=== PATIENT | male | born 1950 | race Caucasian/White ===

== ENCOUNTER 2022-07-15 08:57 | Inpatient (IN) | payer MEDICARE ==
[2022-07-15] VITALS (8 sets, daily range): BP systolic 80–113; BP diastolic 46–69
[~2022-07-15] VITALS: Ht 172.7 cm; Wt 76.5 kg
[2022-07-15] MEDS ORDERED: ALBUMIN HUMAN 25%-12.5GM/50ML IV BOTTLE IV ONE (09:00)
[2022-07-15] MEDS ORDERED: HEPARIN SODIUM,PORCINE 1,000 UNITS/ML VIAL IVP ONE (09:00)
[2022-07-15] MEDS ORDERED: SODIUM CHLORIDE 0.9% 1,000 ML IV ONE (09:15)
[2022-07-15 09:26] LABS: BASOPHILS % (AUTO) 0.2 % (0.0-2.0); EOSINOPHILS % (AUTO) 0 % (1.0-6.0); HEMATOCRIT 33.1 % (41-53); HEMOGLOBIN 10.7 g/dL (13.5-17.5); LYMPHOCYTES # (AUTO) 0.4 K/uL (1.0-4.8); LYMPHOCYTES % (AUTO) 1.4 % (22.0-44.0); MEAN CORPUSCULAR HEMOGLOBIN 32.3 pg (26.0-34.0); MEAN CORPUSCULAR HGB CONC 32.4 G/dL (31.0-37.0); MEAN CORPUSCULAR VOLUME 100 fL (80-100); MONOCYTES # (AUTO) 1.1 K/uL (0.1-1.0); MONOCYTES % (AUTO) 3.7 % (2.0-9.0); NEUTROPHILS # (AUTO) 27.1 K/uL (1.8-7.7); PLATELET COUNT (AUTO) 517 K/uL (150-450); RED BLOOD CELL COUNT(AUTO) 3.32 MIL/uL (4.50-5.90); RED CELL DISTRIBUTION WIDTH 16.6 % (11.5-14.5)
[2022-07-15 09:28] LABS: NEUTROPHILS % (AUTO) 94.7 % (40.0-70.0)
[2022-07-15 09:38] LABS: INR 1.1 (0.9-1.1); PROTHROMBIN TIME 11.5 SEC (9.4-11.6)
[2022-07-15] MEDS ORDERED: ONDANSETRON HCL 4 MG/2 ML VIAL IVP ONE (09:45)
[2022-07-15] MEDS ORDERED: CefTRIAXone 1 GM/DEXTROSE 50 ML IV ONE (09:45)
[2022-07-15] MEDS ORDERED: SODIUM CHLORIDE 0.9% 2,000 ML IV ONE (09:45)
[2022-07-15] MEDS ORDERED: MORPHINE SULFATE 4 MG/ML SYRINGE IVP ONE (09:45)
[2022-07-15 09:47] LABS: B-TYPE NATRIURETIC PEPTIDE 72 pg/mL (0-100)
[2022-07-15 09:58] LABS: AMMONIA 46 umol/L (11-32)
[2022-07-15 10:06] LABS: LACTIC ACID 2.8 mmol/L (0.4-2.0)
[2022-07-15 10:46] LABS: COVID AG,FIA SOURCE NASOPHARYNGEAL
[2022-07-15 10:52] LABS: ABG BASE EXCESS -16.6 mmol/L (-2.0-3.0); ABG CARBOXYHEMOGLOBIN 0.3 % (0.0-1.5); ABG HCO3 12.7 mmol/L (22.0-26.0); ABG METHEMOGLOBIN 0.1 % (0.0-1.5); ABG OXYGEN CONTENT 12.8 mL/dL (15.0-23.0); ABG OXYHEMOGLOBIN 97.6 % (94.0-100.0); ABG PH 7.326 (7.35-7.450); ABG TOTAL HEMOGLOBIN 9.2 G/dL (12.0-18.0); PO2, ARTERIAL BG 96.7 mmHg (75.0-83.0); SOURCE, BLOOD GAS ARTERIAL; TEMPERATURE, FAHRENHEIT, BG 92.6 FAHREN (96.0-98.6)
[2022-07-15 10:53] LABS: ABG A-A DIFF O2 31.9 mmHg (10-20.0); ABG PCO2 19 mmHg (35-45); SITE, BLOOD GAS LFT RADIAL
[2022-07-15 11:03] LABS: APPEARANCE,URINE TURBID (CLEAR); BILIRUBIN,URINE NEGATIVE (NEGATIVE); GLUCOSE, URINE (UA) NEGATIVE (NEGATIVE); KETONES,URINE NEGATIVE (NEGATIVE); LEUKOCYTE ESTERASE ,URINE LARGE (NEGATIVE); NITRATE,URINE NEGATIVE (NEGATIVE); OCCULT BLOOD,URINE LARGE (NEGATIVE); PH,URINE 8.5 (5.0-8.0); PROTEIN,URINE 300-600,SEE CONFIRM mg/dL (NEGATIVE); SPECIFIC GRAVITIY, URINE 1.009 (1.003-1.030); UROBILINOGEN,URINE <=1.0 mg/dL (<=1.0)
[2022-07-15 11:19] LABS: RBC,URINE 26-50 /HPF (0-2); SULFOSALICYLIC ACID,URINE 3+ (Negative); WBC,URINE 51-100 /HPF (0-5)
[2022-07-15 11:20] LABS: BACTERIA,URINE Many /HPF (None Seen)
[2022-07-15 11:56] LABS: INFLUENZA TYPE A NEGATIVE FOR TYPE A (NEGATIVE); INFLUENZA TYPE B NEGATIVE FOR TYPE B (NEGATIVE)
[2022-07-15 12:19] LABS: ALBUMIN 1.4 g/dL (3.4-5.0); BILIRUBIN,TOTAL 2.7 mg/dL (0.1-1.0); CALCIUM, TOTAL 7.5 mg/dL (8.8-10.5); CREATININE 4.03 mg/dL (0.60-1.30); TOTAL PROTEIN, SERUM 5.3 g/dL (6.4-8.2)
[2022-07-15 12:27] LABS: POTASSIUM 7.1 mmol/L (3.5-5.1)
[2022-07-15 12:27] LABS: OCCULT BLOOD STOOL SINGLE ONLY NEGATIVE (NEGATIVE)
[2022-07-15] MEDS ORDERED: SODIUM BICARBONATE [ADULT] 8.4% 50 MEQ/50 ML SYRINGE IVP ONE ×2 (12:30→14:00)
[2022-07-15] MEDS ORDERED: DEXTROSE 50%-WATER 25 GM/50 ML SYRINGE IVP ONE (12:30)
[2022-07-15] MEDS ORDERED: INSULIN REGULAR, HUMAN 100 UNITS/ML IVP ONE (12:30)
[2022-07-15] MEDS ORDERED: CALCIUM GLUCONATE 100 MG/ML 10 ML IVP ONE (12:30)
[2022-07-15] MEDS ORDERED: HEPARIN SODIUM,PORCINE 5,000 UNITS/ML VIAL ONE (13:11)
[2022-07-15 13:14] LABS: CREATINE KINASE, TOTAL ONLY 1115 U/L (39-308); LIPASE 319 U/L (73-393)
[2022-07-15] MEDS ORDERED: SODIUM ZIRCONIUM CYCLOSILICATE 5 GM POWDER PACKET PO ONE (14:00)
[2022-07-15] MEDS ORDERED: ALBUMIN HUMAN 25%-12.5GM/50ML 50 ML IV ONE (14:00)
[2022-07-15] MEDS ORDERED: LEVOFLOXACIN 750 MG/D5% WATER 150 ML IV ONE ×2 (15:00→17:00)
[2022-07-15] MEDS: PHENYLEPHRINE 200 MG/D5%-WATER 250 ML IV PRN (15:09)
[2022-07-15] MEDS ORDERED: ZOLPIDEM TARTRATE 5 MG TABLET PO PRN (16:00)
[2022-07-15] MEDS ORDERED: MORPHINE SULFATE 2 MG/ML SYRINGE IVP PRN (16:00)
[2022-07-15] MEDS ORDERED: *CLINICAL-LEVOFLOXACIN IVPB DOSING CLINICAL ONE (16:00)
[2022-07-15] MEDS ORDERED: MAGNESIUM HYDROXIDE SUSPENSION 30 ML UDCUP PO PRN (16:00)
[2022-07-15] MEDS ORDERED: BISACODYL 10 MG RECTAL RECTAL SUPPOSITORY PR PRN (16:00)
[2022-07-15] MEDS ORDERED: VASOPRESSIN 40 UNITS in DEXTROSE 5%-WATER 98 ML IV PRN (16:45)
[2022-07-15] MEDS: HEPARIN SODIUM,PORCINE 5,000 UNITS/ML VIAL SQ SCH (17:10)
[2022-07-15] MEDS: DOCUSATE SODIUM 100 MG CAPSULE PO SCH (20:40)
[2022-07-15] MEDS: ONDANSETRON HCL 4 MG/2 ML VIAL IVP PRN (20:40)
[2022-07-15] MEDS: HYDROmorphone HCL 2 MG/ML SYRINGE IVP PRN (23:08)
[2022-07-16] MEDS: HYDROmorphone HCL 2 MG/ML SYRINGE IVP PRN ×2 (03:11→09:44)
[2022-07-16] MEDS: ONDANSETRON HCL 4 MG/2 ML VIAL IVP PRN (03:11)
[2022-07-16] MEDS: PHENYLEPHRINE 200 MG/D5%-WATER 250 ML IV PRN ×2 (05:16→20:20)
[2022-07-16 06:15] LABS: EOSINOPHILS % (AUTO) 0 % (1.0-6.0); HEMATOCRIT 25.3 % (41-53); HEMOGLOBIN 8.5 g/dL (13.5-17.5); LYMPHOCYTES # (AUTO) 0.5 K/uL (1.0-4.8); LYMPHOCYTES % (AUTO) 1.9 % (22.0-44.0); MEAN CORPUSCULAR HEMOGLOBIN 32.9 pg (26.0-34.0); MEAN CORPUSCULAR HGB CONC 33.6 G/dL (31.0-37.0); MEAN CORPUSCULAR VOLUME 98 fL (80-100); MONOCYTES # (AUTO) 0.8 K/uL (0.1-1.0); MONOCYTES % (AUTO) 3.5 % (2.0-9.0); NEUTROPHILS # (AUTO) 22.9 K/uL (1.8-7.7); PLATELET COUNT (AUTO) 313 K/uL (150-450); RED BLOOD CELL COUNT(AUTO) 2.59 MIL/uL (4.50-5.90)
[2022-07-16 06:41] LABS: CALCIUM, TOTAL 8.6 mg/dL (8.8-10.5); CREATININE 1.95 mg/dL (0.60-1.30); PHOSPHORUS 4.4 mg/dL (2.5-4.9); POTASSIUM 4.5 mmol/L (3.5-5.1)
[2022-07-16 06:48] LABS: % IRON SATURATION 8.1 % (30-44)
[2022-07-16] MEDS: HEPARIN SODIUM,PORCINE 5,000 UNITS/ML VIAL SQ SCH ×5 (07:05→23:57)
[2022-07-16] MEDS ORDERED: VITAMIN B COMP/VIT C/FOLIC ACID CAPSULE PO ONE (08:00)
[2022-07-16 08:10] LABS: NEUTROPHILS % (AUTO) 94.6 % (40.0-70.0)
[2022-07-16] MEDS: DOCUSATE SODIUM 100 MG CAPSULE PO SCH ×2 (08:33→21:18)
[2022-07-16] MEDS: VITAMIN B COMP/VIT C/FOLIC ACID CAPSULE PO SCH (08:33)
[2022-07-16] MEDS: PANTOPRAZOLE SODIUM 40 MG DR TABLET PO SCH (08:33)
[2022-07-16] MEDS ORDERED: DEXTROSE 5%-0.9% SODIUM CHL 1,000 ML IV SCH (14:15)
[2022-07-16] MEDS: ALBUMIN HUMAN 25%-25GM/100ML 100 ML IV SCH ×2 (15:07→20:39)
[2022-07-16] MEDS: ACETAMINOPHEN 325 MG TABLET PO PRN (21:24)
[2022-07-17] MEDS: HEPARIN SODIUM,PORCINE 5,000 UNITS/ML VIAL SQ SCH ×3 (00:02→16:14)
[2022-07-17] MEDS: ALBUMIN HUMAN 25%-25GM/100ML 100 ML IV SCH ×4 (03:31→21:34)
[2022-07-17] MEDS: VITAMIN B COMP/VIT C/FOLIC ACID CAPSULE PO SCH (07:53)
[2022-07-17] MEDS: PANTOPRAZOLE SODIUM 40 MG DR TABLET PO SCH (08:35)
[2022-07-17] MEDS: DOCUSATE SODIUM 100 MG CAPSULE PO SCH ×2 (08:35→21:34)
[2022-07-17 08:54] LABS: BASOPHILS % (AUTO) 0.1 % (0.0-2.0); EOSINOPHILS % (AUTO) 0.5 % (1.0-6.0); HEMATOCRIT 22.9 % (41-53); HEMOGLOBIN 7.6 g/dL (13.5-17.5); LYMPHOCYTES # (AUTO) 0.6 K/uL (1.0-4.8); LYMPHOCYTES % (AUTO) 3.9 % (22.0-44.0); MEAN CORPUSCULAR HEMOGLOBIN 32.7 pg (26.0-34.0); MEAN CORPUSCULAR VOLUME 99 fL (80-100); MONOCYTES # (AUTO) 0.6 K/uL (0.1-1.0); MONOCYTES % (AUTO) 4.2 % (2.0-9.0); NEUTROPHILS # (AUTO) 12.8 K/uL (1.8-7.7); NEUTROPHILS % (AUTO) 91.3 % (40.0-70.0); PLATELET COUNT (AUTO) 207 K/uL (150-450); RED BLOOD CELL COUNT(AUTO) 2.32 MIL/uL (4.50-5.90); RED CELL DISTRIBUTION WIDTH 15.9 % (11.5-14.5)
[2022-07-17 09:12] LABS: CALCIUM, TOTAL 8.8 mg/dL (8.8-10.5); CREATININE 1.41 mg/dL (0.60-1.30); MAGNESIUM 2.5 mg/dL (1.80-2.40); PHOSPHORUS 2.9 mg/dL (2.5-4.9); POTASSIUM 4.2 mmol/L (3.5-5.1)
[2022-07-17] MEDS ORDERED: PROPOFOL 1% 20 ML VIAL IVP ONE (12:00)
[2022-07-17] MEDS ORDERED: ROCURONIUM BROMIDE 10 MG/ML 5 ML VIAL IVP ONE (12:00)
[2022-07-17] MEDS ORDERED: NEOSTIGMINE METHYLSULFATE 1 MG/ML 10 ML VIAL IVP ONE (12:00)
[2022-07-17] MEDS ORDERED: GLYCOPYRROLATE 0.2 MG/ML VIAL IM ONE (12:00)
[2022-07-17] MEDS ORDERED: DEXAMETHASONE SOD PHOS 4 MG/ML VIAL IVP ONE (12:00)
[2022-07-17] MEDS ORDERED: ONDANSETRON HCL 4 MG/2 ML VIAL IVP ONE (12:00)
[2022-07-17] MEDS: DAPTOMYCIN 500 MG in SODIUM CHLORIDE 0.9% 50 ML IV SCH (14:22)
[2022-07-17] MEDS: MetroNIDAZOLE 500 MG TABLET PO SCH (16:15)
[2022-07-17] MEDS ORDERED: LEVOFLOXACIN 500 MG/D5% WATER 100 ML IV SCH (17:00)
[2022-07-17] MEDS ORDERED: LEVOFLOXACIN 750 MG/D5% WATER 150 ML IV SCH (17:00)
[2022-07-17] MEDS: HYDROCODONE/ACETAMINOPHEN 5-325 MG TABLET PO PRN (17:01)
[2022-07-17] MEDS: DEXTROSE 5%-0.45% SODIUM CHL 1,000 ML IV SCH (18:06)
[2022-07-17 20:20] VITALS: BP 100/56
[2022-07-17] MEDS: ETHYL ALCOHOL 62% ANTISEPTIC NASAL SANITIZER 0.6 ML AMPUL NASAL SCH (21:37)
[2022-07-18] VITALS (11 sets, daily range): BP systolic 89–153; BP diastolic 45–89
[2022-07-18] MEDS: HEPARIN SODIUM,PORCINE 5,000 UNITS/ML VIAL SQ SCH ×2 (00:52→08:00)
[2022-07-18] MEDS: MetroNIDAZOLE 500 MG TABLET PO SCH ×3 (00:52→18:14)
[2022-07-18] MEDS: ALBUMIN HUMAN 25%-25GM/100ML 100 ML IV SCH ×4 (02:46→20:57)
[2022-07-18 08:29] LABS: BASOPHILS % (AUTO) 0.2 % (0.0-2.0); EOSINOPHILS % (AUTO) 0.2 % (1.0-6.0); LYMPHOCYTES # (AUTO) 0.6 K/uL (1.0-4.8); LYMPHOCYTES % (AUTO) 5.8 % (22.0-44.0); MEAN CORPUSCULAR HEMOGLOBIN 32.9 pg (26.0-34.0); MEAN CORPUSCULAR HGB CONC 33.4 G/dL (31.0-37.0); MEAN CORPUSCULAR VOLUME 99 fL (80-100); MONOCYTES # (AUTO) 0.5 K/uL (0.1-1.0); NEUTROPHILS # (AUTO) 8.9 K/uL (1.8-7.7); PLATELET COUNT (AUTO) 161 K/uL (150-450); RED BLOOD CELL COUNT(AUTO) 1.87 MIL/uL (4.50-5.90)
[2022-07-18 08:35] LABS: HEMATOCRIT 18.5 % (41-53); HEMOGLOBIN 6.2 g/dL (13.5-17.5); NEUTROPHILS % (AUTO) 88.8 % (40.0-70.0)
[2022-07-18] MEDS ORDERED: SODIUM CHLORIDE 0.9% 250 ML IV ONE (09:18)
[2022-07-18 10:00] LABS: BASOPHILS % (AUTO) 0.4 % (0.0-2.0); EOSINOPHILS % (AUTO) 0.2 % (1.0-6.0); LYMPHOCYTES # (AUTO) 0.6 K/uL (1.0-4.8); LYMPHOCYTES % (AUTO) 6.3 % (22.0-44.0); MEAN CORPUSCULAR HEMOGLOBIN 33.3 pg (26.0-34.0); MEAN CORPUSCULAR HGB CONC 33.9 G/dL (31.0-37.0); MEAN CORPUSCULAR VOLUME 98 fL (80-100); MONOCYTES # (AUTO) 0.5 K/uL (0.1-1.0); MONOCYTES % (AUTO) 5.6 % (2.0-9.0); NEUTROPHILS # (AUTO) 8.4 K/uL (1.8-7.7); PLATELET COUNT (AUTO) 162 K/uL (150-450); RED BLOOD CELL COUNT(AUTO) 1.89 MIL/uL (4.50-5.90)
[2022-07-18 10:04] LABS: HEMOGLOBIN 6.3 g/dL (13.5-17.5)
[2022-07-18 10:05] LABS: HEMATOCRIT 18.6 % (41-53); NEUTROPHILS % (AUTO) 87.5 % (40.0-70.0)
[2022-07-18 10:15] LABS: CALCIUM, TOTAL 8.8 mg/dL (8.8-10.5); CREATININE 1.21 mg/dL (0.60-1.30); MAGNESIUM 1.9 mg/dL (1.80-2.40); PHOSPHORUS 1.5 mg/dL (2.5-4.9)
[2022-07-18] MEDS: VITAMIN B COMP/VIT C/FOLIC ACID CAPSULE PO SCH (10:17)
[2022-07-18] MEDS: DEXTROSE 5%-0.45% SODIUM CHL 1,000 ML IV SCH ×2 (10:17→22:49)
[2022-07-18 10:18] LABS: POTASSIUM 2.9 mmol/L (3.5-5.1)
[2022-07-18] MEDS: DOCUSATE SODIUM 100 MG CAPSULE PO SCH ×2 (10:18→20:57)
[2022-07-18] MEDS: PANTOPRAZOLE SODIUM 40 MG/VIAL IVP SCH ×2 (10:18→20:57)
[2022-07-18] MEDS: ETHYL ALCOHOL 62% ANTISEPTIC NASAL SANITIZER 0.6 ML AMPUL NASAL SCH ×2 (10:18→20:56)
[2022-07-18] MEDS ORDERED: POTASSIUM CHLORIDE 10% 40 MEQ/30 ML LIQUID UDCUP PO ONE (11:15)
[2022-07-18] MEDS: SODIUM,POTASSIUM PHOSPHATES POWDER PACKET PO SCH ×3 (11:25→20:56)
[2022-07-18] MEDS: POTASSIUM CHL 10 MEQ/WATER 50 ML IV SCH ×2 (11:26→12:56)
[2022-07-18] MEDS: SODIUM HYPOCHLORITE 0.25% [HALF STRENGTH] 473 ML SOLUTION TP SCH (11:30)
[2022-07-18] MEDS ORDERED: GADOTERATE MEGLUMINE 10 MMOL/20 ML VIAL IVP ONE (14:11)
[2022-07-18] MEDS: DAPTOMYCIN 500 MG in SODIUM CHLORIDE 0.9% 50 ML IV SCH (14:45)
[2022-07-18 18:23] LABS: ANION GAP 7 mmol/L (8-16); CALCIUM, TOTAL 8.6 mg/dL (8.8-10.5); CARBON DIOXIDE 23 mmol/L (22-29); CHLORIDE 109 mmol/L (98-107); CREATININE 1.04 mg/dL (0.60-1.30); GLOMERULAR FILTR. RATE CALC > 60 mL/min (>60); GLUCOSE,RANDOM 93 mg/dL (70-110); POTASSIUM 3.4 mmol/L (3.5-5.1); SODIUM SERUM 139 mmol/L (136-145); UREA NITROGEN, BLOOD 31 mg/dL (7-18)
[2022-07-18 20:20] LABS: BASOPHILS % (AUTO) 0.2 % (0.0-2.0); EOSINOPHILS % (AUTO) 0.2 % (1.0-6.0); HEMATOCRIT 21.3 % (41-53); HEMOGLOBIN 7.2 g/dL (13.5-17.5); LYMPHOCYTES # (AUTO) 0.6 K/uL (1.0-4.8); LYMPHOCYTES % (AUTO) 5.7 % (22.0-44.0); MEAN CORPUSCULAR HEMOGLOBIN 32.7 pg (26.0-34.0); MEAN CORPUSCULAR HGB CONC 33.7 G/dL (31.0-37.0); MEAN CORPUSCULAR VOLUME 97 fL (80-100); MONOCYTES # (AUTO) 0.6 K/uL (0.1-1.0); MONOCYTES % (AUTO) 5.8 % (2.0-9.0); PLATELET COUNT (AUTO) 148 K/uL (150-450); RED BLOOD CELL COUNT(AUTO) 2.19 MIL/uL (4.50-5.90); RED CELL DISTRIBUTION WIDTH 15.8 % (11.5-14.5)
[2022-07-18 20:22] LABS: NEUTROPHILS % (AUTO) 88.1 % (40.0-70.0)
[2022-07-18] MEDS ORDERED: POTASSIUM CHLORIDE 20 MEQ ER TABLET PO ONE (20:45)
[2022-07-18] MEDS: ACETAMINOPHEN 325 MG TABLET PO PRN (20:56)
[2022-07-18] MEDS: HYDROmorphone HCL 2 MG/ML SYRINGE IVP PRN (22:48)
[2022-07-19] VITALS (14 sets, daily range): BP systolic 86–110; BP diastolic 51–66
[2022-07-19] MEDS: MetroNIDAZOLE 500 MG TABLET PO SCH ×3 (00:56→16:13)
[2022-07-19] MEDS: ALBUMIN HUMAN 25%-25GM/100ML 100 ML IV SCH ×4 (03:36→20:52)
[2022-07-19 06:49] LABS: BASOPHILS % (AUTO) 0.2 % (0.0-2.0); EOSINOPHILS % (AUTO) 0.5 % (1.0-6.0); LYMPHOCYTES # (AUTO) 0.7 K/uL (1.0-4.8); LYMPHOCYTES % (AUTO) 8.1 % (22.0-44.0); MEAN CORPUSCULAR HEMOGLOBIN 33.5 pg (26.0-34.0); MEAN CORPUSCULAR HGB CONC 34.3 G/dL (31.0-37.0); MEAN CORPUSCULAR VOLUME 98 fL (80-100); MONOCYTES # (AUTO) 0.5 K/uL (0.1-1.0); MONOCYTES % (AUTO) 5.7 % (2.0-9.0); NEUTROPHILS # (AUTO) 7.8 K/uL (1.8-7.7); PLATELET COUNT (AUTO) 145 K/uL (150-450); RED BLOOD CELL COUNT(AUTO) 1.98 MIL/uL (4.50-5.90)
[2022-07-19 06:54] LABS: HEMOGLOBIN 6.7 g/dL (13.5-17.5)
[2022-07-19 06:55] LABS: HEMATOCRIT 19.4 % (41-53); NEUTROPHILS % (AUTO) 85.5 % (40.0-70.0)
[2022-07-19 07:00] LABS: ALANINE AMINOTRANSFERASE 30 U/L (12-78); ALBUMIN 3.1 g/dL (3.4-5.0); ALKALINE PHOSPHATASE 86 U/L (46-116); ANION GAP 9 mmol/L (8-16); ASPARTATE AMINOTRANSFERASE 38 U/L (15-37); BILIRUBIN,TOTAL 2.5 mg/dL (0.1-1.0); C-REACTIVE PROTEIN QUANT 13.17 mg/dL (0.00-0.30); CALCIUM, TOTAL 8.6 mg/dL (8.8-10.5); CARBON DIOXIDE 24 mmol/L (22-29); CHLORIDE 106 mmol/L (98-107); CREATININE 1.14 mg/dL (0.60-1.30); GLUCOSE,RANDOM 101 mg/dL (70-110); POTASSIUM 3.4 mmol/L (3.5-5.1); SODIUM SERUM 139 mmol/L (136-145); TOTAL PROTEIN, SERUM 5.6 g/dL (6.4-8.2); UREA NITROGEN, BLOOD 30 mg/dL (7-18)
[2022-07-19 07:06] LABS: GLOMERULAR FILTR. RATE CALC > 60 mL/min (>60)
[2022-07-19] MEDS: PANTOPRAZOLE SODIUM 40 MG/VIAL IVP SCH ×2 (08:28→20:48)
[2022-07-19] MEDS: VITAMIN B COMP/VIT C/FOLIC ACID CAPSULE PO SCH (08:28)
[2022-07-19] MEDS: DOCUSATE SODIUM 100 MG CAPSULE PO SCH ×2 (08:28→20:55)
[2022-07-19] MEDS: ETHYL ALCOHOL 62% ANTISEPTIC NASAL SANITIZER 0.6 ML AMPUL NASAL SCH ×2 (08:29→20:54)
[2022-07-19] MEDS ORDERED: POTASSIUM CHL 10 MEQ/WATER 50 ML IV ONE (08:30)
[2022-07-19] MEDS: SODIUM HYPOCHLORITE 0.25% [HALF STRENGTH] 473 ML SOLUTION TP SCH (09:00)
[2022-07-19 09:16] LABS: PHOSPHORUS 2.2 mg/dL (2.5-4.9)
[2022-07-19] MEDS ORDERED: SODIUM CHLORIDE 0.9% 250 ML IV ONE ×3 (09:16→20:39)
[2022-07-19] MEDS: CefTRIAXone SODIUM 2 GM in DEXTROSE 5%-WATER 50 ML IV SCH (13:42)
[2022-07-19] MEDS: DEXTROSE 5%-0.45% SODIUM CHL 1,000 ML IV SCH (14:42)
[2022-07-19] MEDS ORDERED: LEVOFLOXACIN 750 MG/D5% WATER 150 ML IV SCH (17:00)
[2022-07-19 17:05] LABS: HEMATOCRIT 22.9 % (41-53); HEMOGLOBIN 7.6 g/dL (13.5-17.5)
[2022-07-19 17:15] LABS: ANION GAP 9 mmol/L (8-16); CALCIUM, TOTAL 8.7 mg/dL (8.8-10.5); CARBON DIOXIDE 25 mmol/L (22-29); CHLORIDE 106 mmol/L (98-107); GLUCOSE,RANDOM 104 mg/dL (70-110); POTASSIUM 3.2 mmol/L (3.5-5.1); SODIUM SERUM 140 mmol/L (136-145); UREA NITROGEN, BLOOD 26 mg/dL (7-18)
[2022-07-19 17:16] LABS: GLOMERULAR FILTR. RATE CALC > 60 mL/min (>60)
[2022-07-19] MEDS: POTASSIUM CHL 10 MEQ/WATER 50 ML IV PRN ×3 (18:33→22:28)
[2022-07-19] MEDS: ACETAMINOPHEN 325 MG TABLET PO PRN (20:54)
[2022-07-20] VITALS (16 sets, daily range): BP systolic 64–143; BP diastolic 45–88
[2022-07-20] MEDS: MetroNIDAZOLE 500 MG TABLET PO SCH ×3 (01:03→17:05)
[2022-07-20] MEDS: HYDROCODONE/ACETAMINOPHEN 5-325 MG TABLET PO PRN (01:03)
[2022-07-20] MEDS: ALBUMIN HUMAN 25%-25GM/100ML 100 ML IV SCH ×2 (03:56→09:19)
[2022-07-20] MEDS: HYDROmorphone HCL 2 MG/ML SYRINGE IVP PRN (03:57)
[2022-07-20 06:08] LABS: BASOPHILS % (AUTO) 0.1 % (0.0-2.0); EOSINOPHILS % (AUTO) 0.7 % (1.0-6.0); HEMATOCRIT 24.5 % (41-53); HEMOGLOBIN 8.4 g/dL (13.5-17.5); LYMPHOCYTES # (AUTO) 0.6 K/uL (1.0-4.8); LYMPHOCYTES % (AUTO) 5.4 % (22.0-44.0); MEAN CORPUSCULAR HEMOGLOBIN 32.5 pg (26.0-34.0); MEAN CORPUSCULAR VOLUME 96 fL (80-100); MONOCYTES # (AUTO) 0.5 K/uL (0.1-1.0); MONOCYTES % (AUTO) 4.5 % (2.0-9.0); NEUTROPHILS # (AUTO) 9.3 K/uL (1.8-7.7); PLATELET COUNT (AUTO) 132 K/uL (150-450); RED BLOOD CELL COUNT(AUTO) 2.57 MIL/uL (4.50-5.90); RED CELL DISTRIBUTION WIDTH 16.9 % (11.5-14.5)
[2022-07-20 06:18] LABS: NEUTROPHILS % (AUTO) 89.3 % (40.0-70.0)
[2022-07-20 06:22] LABS: INR 1.4 (0.9-1.1)
[2022-07-20] MEDS: POTASSIUM CHL 10 MEQ/WATER 50 ML IV PRN ×3 (06:23→11:25)
[2022-07-20 06:28] LABS: ALANINE AMINOTRANSFERASE 21 U/L (12-78); ALBUMIN 3.3 g/dL (3.4-5.0); ALKALINE PHOSPHATASE 74 U/L (46-116); ANION GAP 8 mmol/L (8-16); ASPARTATE AMINOTRANSFERASE 26 U/L (15-37); BILIRUBIN,TOTAL 2.9 mg/dL (0.1-1.0); C-REACTIVE PROTEIN QUANT 12.66 mg/dL (0.00-0.30); CALCIUM, TOTAL 8.8 mg/dL (8.8-10.5); CARBON DIOXIDE 25 mmol/L (22-29); CHLORIDE 106 mmol/L (98-107); CREATININE 1.01 mg/dL (0.60-1.30); GLUCOSE,RANDOM 97 mg/dL (70-110); PHOSPHORUS 2.1 mg/dL (2.5-4.9); POTASSIUM 3.4 mmol/L (3.5-5.1); SODIUM SERUM 139 mmol/L (136-145); TOTAL PROTEIN, SERUM 5.7 g/dL (6.4-8.2); UREA NITROGEN, BLOOD 25 mg/dL (7-18)
[2022-07-20] MEDS ORDERED: SODIUM CHLORIDE 0.9% 500 ML IV ONE ×3 (06:30→15:59)
[2022-07-20 06:41] LABS: GLOMERULAR FILTR. RATE CALC > 60 mL/min (>60)
[2022-07-20] MEDS ORDERED: BUPIVACAINE HCL/PF 0.25% 30 ML VIAL ONE (07:15)
[2022-07-20] MEDS ORDERED: VANCOMYCIN HCL 1 GM/VIAL ONE (07:15)
[2022-07-20] MEDS ORDERED: BUPIVACAINE 0.25%/EPI 1:200,000/PF 10 ML VIAL ONE ×2 (07:15)
[2022-07-20] MEDS ORDERED: MEPERIDINE-PF 25 MG/ML VIAL IVP PRN (08:15)
[2022-07-20] MEDS ORDERED: MAGNESIUM SULFATE 2 GM/WATER 50 ML IV ONE (08:15)
[2022-07-20] MEDS ORDERED: SODIUM PHOS,M-BASIC-D-BASIC 10 MEQ in DEXTROSE 5%-WATER 50 ML IV ONE (08:15)
[2022-07-20] MEDS ORDERED: FentaNYL CITRATE PF 100 MCG/2 ML VIAL IVP PRN (08:15)
[2022-07-20] MEDS ORDERED: HYDROmorphone HCL 2 MG/ML SYRINGE IVP PRN (08:15)
[2022-07-20] MEDS: CADEXOMER IODINE 0.9% 40 GM GEL TP SCH (09:00)
[2022-07-20] MEDS: SODIUM HYPOCHLORITE 0.25% [HALF STRENGTH] 473 ML SOLUTION TP SCH (09:00)
[2022-07-20] MEDS: VITAMIN B COMP/VIT C/FOLIC ACID CAPSULE PO SCH (09:18)
[2022-07-20] MEDS: PANTOPRAZOLE SODIUM 40 MG/VIAL IVP SCH ×2 (09:20→21:58)
[2022-07-20] MEDS: DOCUSATE SODIUM 100 MG CAPSULE PO SCH ×2 (09:21→21:58)
[2022-07-20] MEDS: ETHYL ALCOHOL 62% ANTISEPTIC NASAL SANITIZER 0.6 ML AMPUL NASAL SCH ×2 (09:21→21:58)
[2022-07-20] MEDS: DEXTROSE 5%-0.45% SODIUM CHL 1,000 ML IV SCH (13:53)
[2022-07-20] MEDS: CefTRIAXone SODIUM 2 GM in DEXTROSE 5%-WATER 50 ML IV SCH (13:54)
[2022-07-20] MEDS: CIPROFLOXACIN 400 MG/D5% WATER 200 ML IV SCH (14:36)
[2022-07-20] MEDS ORDERED: SODIUM CHLORIDE 0.9% 250 ML IV ONE ×4 (14:40→20:30)
[2022-07-20] MEDS ORDERED: ALBUMIN HUMAN 5%-12.5GM/250ML 250 ML IV ONE ×2 (18:45→18:47)
[2022-07-20] MEDS: OXYGEN THERAPY IH SCH (20:00)
[2022-07-20] MEDS: PHENYLEPHRINE 200 MG/D5%-WATER 250 ML IV PRN (20:18)
[2022-07-20 20:20] LABS: HEMATOCRIT 20.8 % (41-53); HEMOGLOBIN 6.9 g/dL (13.5-17.5)
[2022-07-21] VITALS: BP 129/80
[2022-07-21] MEDS ORDERED: SODIUM CHLORIDE 0.9% 250 ML IV ONE (00:18)
[2022-07-21] MEDS: CIPROFLOXACIN 400 MG/D5% WATER 200 ML IV SCH ×2 (00:54→13:03)
[2022-07-21] MEDS: MetroNIDAZOLE 500 MG TABLET PO SCH ×3 (00:54→17:45)
[2022-07-21 04:00] VITALS: BP 112/71
[2022-07-21] MEDS: ACETAMINOPHEN 325 MG TABLET PO PRN (04:07)
[2022-07-21] MEDS: HYDROmorphone HCL 2 MG/ML SYRINGE IVP PRN ×2 (04:08→20:53)
[2022-07-21] MEDS ORDERED: SODIUM CHLORIDE 0.9% 0 ML ONE (05:40)
[2022-07-21] MEDS: DEXTROSE 5%-0.45% SODIUM CHL 1,000 ML IV SCH ×2 (05:43→21:49)
[2022-07-21 05:46] LABS: BASOPHILS % (AUTO) 0.1 % (0.0-2.0); EOSINOPHILS % (AUTO) 0.2 % (1.0-6.0); HEMATOCRIT 26.1 % (41-53); HEMOGLOBIN 8.8 g/dL (13.5-17.5); LYMPHOCYTES # (AUTO) 1.2 K/uL (1.0-4.8); LYMPHOCYTES % (AUTO) 7.6 % (22.0-44.0); MEAN CORPUSCULAR HEMOGLOBIN 32.3 pg (26.0-34.0); MEAN CORPUSCULAR HGB CONC 33.9 G/dL (31.0-37.0); MEAN CORPUSCULAR VOLUME 95 fL (80-100); MONOCYTES # (AUTO) 1.1 K/uL (0.1-1.0); MONOCYTES % (AUTO) 6.9 % (2.0-9.0); NEUTROPHILS # (AUTO) 13.1 K/uL (1.8-7.7); PLATELET COUNT (AUTO) 172 K/uL (150-450); RED BLOOD CELL COUNT(AUTO) 2.74 MIL/uL (4.50-5.90)
[2022-07-21 05:53] LABS: NEUTROPHILS % (AUTO) 85.2 % (40.0-70.0)
[2022-07-21 06:05] LABS: ALANINE AMINOTRANSFERASE 19 U/L (12-78); ALKALINE PHOSPHATASE 71 U/L (46-116); ANION GAP 12 mmol/L (8-16); ASPARTATE AMINOTRANSFERASE 23 U/L (15-37); BILIRUBIN,TOTAL 1.9 mg/dL (0.1-1.0); CALCIUM, TOTAL 8.4 mg/dL (8.8-10.5); CARBON DIOXIDE 21 mmol/L (22-29); CHLORIDE 107 mmol/L (98-107); CREATININE 1.02 mg/dL (0.60-1.30); GLUCOSE,RANDOM 97 mg/dL (70-110); PHOSPHORUS 2.5 mg/dL (2.5-4.9); POTASSIUM 3.6 mmol/L (3.5-5.1); SODIUM SERUM 140 mmol/L (136-145); TOTAL PROTEIN, SERUM 5.5 g/dL (6.4-8.2); UREA NITROGEN, BLOOD 26 mg/dL (7-18)
[2022-07-21 06:08] LABS: GLOMERULAR FILTR. RATE CALC > 60 mL/min (>60)
[2022-07-21] MEDS ORDERED: LIDOCAINE/PF 2% 5 ML VIAL IM ONE (06:50)
[2022-07-21] MEDS ORDERED: FentaNYL CITRATE PF 100 MCG/2 ML VIAL IVP ONE (06:50)
[2022-07-21] MEDS ORDERED: ONDANSETRON HCL 4 MG/2 ML VIAL IVP ONE (06:50)
[2022-07-21] MEDS ORDERED: ROCURONIUM BROMIDE 10 MG/ML 5 ML VIAL IVP ONE (06:50)
[2022-07-21] MEDS ORDERED: PROPOFOL 1% 20 ML VIAL IVP ONE (06:50)
[2022-07-21] MEDS ORDERED: DEXAMETHASONE SOD PHOS 4 MG/ML VIAL IVP ONE (06:50)
[2022-07-21 08:00] VITALS: BP 87/55
[2022-07-21] MEDS: OXYGEN THERAPY IH SCH ×2 (08:00→20:00)
[2022-07-21] MEDS ORDERED: MEDRONATE TC99M/UD<30 MCL ISOTOPE 1 EA INJ INJ ONE (09:10)
[2022-07-21] MEDS: VITAMIN B COMP/VIT C/FOLIC ACID CAPSULE PO SCH (09:50)
[2022-07-21] MEDS: PANTOPRAZOLE SODIUM 40 MG/VIAL IVP SCH ×2 (09:50→20:53)
[2022-07-21] MEDS: ETHYL ALCOHOL 62% ANTISEPTIC NASAL SANITIZER 0.6 ML AMPUL NASAL SCH ×2 (09:51→20:53)
[2022-07-21] MEDS: DOCUSATE SODIUM 100 MG CAPSULE PO SCH ×2 (09:51→20:53)
[2022-07-21] MEDS: SODIUM HYPOCHLORITE 0.25% [HALF STRENGTH] 473 ML SOLUTION TP SCH (09:52)
[2022-07-21] MEDS: CADEXOMER IODINE 0.9% 40 GM GEL TP SCH (09:53)
[2022-07-21 12:00] VITALS: BP 115/74
[2022-07-21] MEDS: CefTRIAXone SODIUM 2 GM in DEXTROSE 5%-WATER 50 ML IV SCH (13:04)
[2022-07-21 16:00] VITALS: BP 104/69
[2022-07-21] MEDS: ALBUMIN HUMAN 25%-25GM/100ML 100 ML IV SCH (17:45)
[2022-07-21 20:00] VITALS: BP 95/51
[2022-07-22] VITALS (8 sets, daily range): BP systolic 90–141; BP diastolic 47–78
[2022-07-22] MEDS: MetroNIDAZOLE 500 MG TABLET PO SCH ×4 (00:14→23:45)
[2022-07-22] MEDS: HYDROCODONE/ACETAMINOPHEN 5-325 MG TABLET PO PRN ×4 (00:15→22:30)
[2022-07-22] MEDS: CIPROFLOXACIN 400 MG/D5% WATER 200 ML IV SCH ×2 (00:16→13:24)
[2022-07-22] MEDS: ACETAMINOPHEN 325 MG TABLET PO PRN (00:17)
[2022-07-22] MEDS: ALBUMIN HUMAN 25%-25GM/100ML 100 ML IV SCH (05:04)
[2022-07-22] MEDS: HYDROmorphone HCL 2 MG/ML SYRINGE IVP PRN (05:04)
[2022-07-22 05:54] LABS: BASOPHILS % (AUTO) 0.2 % (0.0-2.0); EOSINOPHILS % (AUTO) 0.3 % (1.0-6.0); HEMATOCRIT 25.2 % (41-53); HEMOGLOBIN 8.4 g/dL (13.5-17.5); LYMPHOCYTES # (AUTO) 0.9 K/uL (1.0-4.8); LYMPHOCYTES % (AUTO) 5.7 % (22.0-44.0); MEAN CORPUSCULAR HEMOGLOBIN 32.2 pg (26.0-34.0); MEAN CORPUSCULAR HGB CONC 33.3 G/dL (31.0-37.0); MEAN CORPUSCULAR VOLUME 97 fL (80-100); MONOCYTES # (AUTO) 1.3 K/uL (0.1-1.0); MONOCYTES % (AUTO) 8.7 % (2.0-9.0); NEUTROPHILS # (AUTO) 12.7 K/uL (1.8-7.7); NEUTROPHILS % (AUTO) 85.1 % (40.0-70.0); PLATELET COUNT (AUTO) 160 K/uL (150-450); RED BLOOD CELL COUNT(AUTO) 2.61 MIL/uL (4.50-5.90); RED CELL DISTRIBUTION WIDTH 16.4 % (11.5-14.5)
[2022-07-22 06:15] LABS: ALANINE AMINOTRANSFERASE 19 U/L (12-78); ALKALINE PHOSPHATASE 74 U/L (46-116); ANION GAP 9 mmol/L (8-16); ASPARTATE AMINOTRANSFERASE 24 U/L (15-37); BILIRUBIN,TOTAL 1.6 mg/dL (0.1-1.0); C-REACTIVE PROTEIN QUANT 8.76 mg/dL (0.00-0.30); CALCIUM, TOTAL 8.3 mg/dL (8.8-10.5); CARBON DIOXIDE 23 mmol/L (22-29); CHLORIDE 107 mmol/L (98-107); CREATININE 0.91 mg/dL (0.60-1.30); GLUCOSE,RANDOM 107 mg/dL (70-110); PHOSPHORUS 2.3 mg/dL (2.5-4.9); POTASSIUM 3.3 mmol/L (3.5-5.1); SODIUM SERUM 139 mmol/L (136-145); TOTAL PROTEIN, SERUM 5.6 g/dL (6.4-8.2); UREA NITROGEN, BLOOD 22 mg/dL (7-18)
[2022-07-22 06:21] LABS: GLOMERULAR FILTR. RATE CALC > 60 mL/min (>60)
[2022-07-22] MEDS: OXYGEN THERAPY IH SCH ×2 (08:00→20:33)
[2022-07-22] MEDS: VITAMIN B COMP/VIT C/FOLIC ACID CAPSULE PO SCH (10:01)
[2022-07-22] MEDS: DOCUSATE SODIUM 100 MG CAPSULE PO SCH ×2 (10:01→20:34)
[2022-07-22] MEDS: ETHYL ALCOHOL 62% ANTISEPTIC NASAL SANITIZER 0.6 ML AMPUL NASAL SCH ×2 (10:02→20:34)
[2022-07-22] MEDS: PANTOPRAZOLE SODIUM 40 MG/VIAL IVP SCH ×2 (10:02→20:34)
[2022-07-22] MEDS: POTASSIUM CHL 10 MEQ/WATER 50 ML IV PRN ×2 (10:03→10:52)
[2022-07-22] MEDS ORDERED: MAGNESIUM OXIDE 400 MG TABLET PO PRN (11:15)
[2022-07-22] MEDS ORDERED: MAGNESIUM SULFATE 2 GM/WATER 50 ML IV PRN (11:15)
[2022-07-22] MEDS ORDERED: MAGNESIUM SULFATE 4 GM/WATER 100 ML IV PRN (11:15)
[2022-07-22] MEDS ORDERED: SODIUM PHOS,M-BASIC-D-BASIC 30 MMOL in DEXTROSE 5%-WATER 250 ML IV ONE (11:15)
[2022-07-22] MEDS: CefTRIAXone SODIUM 2 GM in DEXTROSE 5%-WATER 50 ML IV SCH (14:45)
[2022-07-22 15:48] LABS: APPEARANCE,URINE CLEAR (CLEAR); BILIRUBIN,URINE NEGATIVE (NEGATIVE); GLUCOSE, URINE (UA) NEGATIVE (NEGATIVE); KETONES,URINE NEGATIVE (NEGATIVE); LEUKOCYTE ESTERASE ,URINE SMALL (NEGATIVE); NITRATE,URINE NEGATIVE (NEGATIVE); OCCULT BLOOD,URINE MODERATE (NEGATIVE); PH,URINE 5.5 (5.0-8.0); PROTEIN,URINE 30-70 mg/dL (NEGATIVE); SPECIFIC GRAVITIY, URINE 1.018 (1.003-1.030); UROBILINOGEN,URINE <=1.0 mg/dL (<=1.0)
[2022-07-22 16:05] LABS: AMORPHOUS SEDIMENT,UR Few /LPF (None Seen); BACTERIA,URINE Few /HPF (None Seen); FINE GRANULAR CASTS,URINE 0-2 /LPF (None Seen); SQUAMOUS EPITHELIAL CELL,UR Few /LPF (None Seen)
[2022-07-22] MEDS: SODIUM HYPOCHLORITE 0.25% [HALF STRENGTH] 473 ML SOLUTION TP SCH (17:00)
[2022-07-22] MEDS: CADEXOMER IODINE 0.9% 40 GM GEL TP SCH (17:00)
[2022-07-22] MEDS: DEXTROSE 5%-0.45% SODIUM CHL 1,000 ML IV SCH (22:31)
[2022-07-23] VITALS: BP 83/61
[2022-07-23] MEDS: CIPROFLOXACIN 400 MG/D5% WATER 200 ML IV SCH ×2 (01:22→14:01)
[2022-07-23 04:00] VITALS: BP 139/65
[2022-07-23] MEDS: HYDROCODONE/ACETAMINOPHEN 5-325 MG TABLET PO PRN ×4 (04:00→18:11)
[2022-07-23 05:22] LABS: BASOPHILS % (AUTO) 0.2 % (0.0-2.0); EOSINOPHILS % (AUTO) 0.6 % (1.0-6.0); HEMATOCRIT 24.5 % (41-53); HEMOGLOBIN 8.2 g/dL (13.5-17.5); LYMPHOCYTES % (AUTO) 6.7 % (22.0-44.0); MEAN CORPUSCULAR HEMOGLOBIN 32.4 pg (26.0-34.0); MEAN CORPUSCULAR HGB CONC 33.3 G/dL (31.0-37.0); MEAN CORPUSCULAR VOLUME 97 fL (80-100); MONOCYTES # (AUTO) 1.3 K/uL (0.1-1.0); MONOCYTES % (AUTO) 8.7 % (2.0-9.0); NEUTROPHILS # (AUTO) 12.2 K/uL (1.8-7.7); NEUTROPHILS % (AUTO) 83.8 % (40.0-70.0); PLATELET COUNT (AUTO) 164 K/uL (150-450); RED BLOOD CELL COUNT(AUTO) 2.52 MIL/uL (4.50-5.90); RED CELL DISTRIBUTION WIDTH 16.5 % (11.5-14.5)
[2022-07-23] MEDS ORDERED: SODIUM CHLORIDE 0.9% 250 ML IV ONE (06:54)
[2022-07-23 08:00] VITALS: BP 114/71
[2022-07-23] MEDS: ETHYL ALCOHOL 62% ANTISEPTIC NASAL SANITIZER 0.6 ML AMPUL NASAL SCH ×2 (08:33→20:49)
[2022-07-23] MEDS: DOCUSATE SODIUM 100 MG CAPSULE PO SCH ×2 (08:33→20:49)
[2022-07-23] MEDS: MetroNIDAZOLE 500 MG TABLET PO SCH ×2 (08:33→17:38)
[2022-07-23] MEDS: PANTOPRAZOLE SODIUM 40 MG/VIAL IVP SCH ×2 (08:33→20:49)
[2022-07-23] MEDS: SODIUM HYPOCHLORITE 0.25% [HALF STRENGTH] 473 ML SOLUTION TP SCH (08:33)
[2022-07-23] MEDS: CADEXOMER IODINE 0.9% 40 GM GEL TP SCH (08:33)
[2022-07-23] MEDS: VITAMIN B COMP/VIT C/FOLIC ACID CAPSULE PO SCH (08:33)
[2022-07-23 08:41] LABS: ALANINE AMINOTRANSFERASE 17 U/L (12-78); ALBUMIN 2.5 g/dL (3.4-5.0); ALKALINE PHOSPHATASE 66 U/L (46-116); ANION GAP 9 mmol/L (8-16); ASPARTATE AMINOTRANSFERASE 20 U/L (15-37); BILIRUBIN,TOTAL 1.2 mg/dL (0.1-1.0); C-REACTIVE PROTEIN QUANT 10.82 mg/dL (0.00-0.30); CALCIUM, TOTAL 8.1 mg/dL (8.8-10.5); CARBON DIOXIDE 23 mmol/L (22-29); CHLORIDE 104 mmol/L (98-107); CREATININE 0.84 mg/dL (0.60-1.30); GLUCOSE,RANDOM 196 mg/dL (70-110); POTASSIUM 3.4 mmol/L (3.5-5.1); SODIUM SERUM 136 mmol/L (136-145); TOTAL PROTEIN, SERUM 5.2 g/dL (6.4-8.2); UREA NITROGEN, BLOOD 17 mg/dL (7-18)
[2022-07-23 08:42] LABS: GLOMERULAR FILTR. RATE CALC > 60 mL/min (>60)
[2022-07-23] MEDS: POTASSIUM CHL 10 MEQ/WATER 50 ML IV PRN ×2 (10:40→11:36)
[2022-07-23 12:00] VITALS: BP 115/73
[2022-07-23] MEDS: CefTRIAXone SODIUM 2 GM in DEXTROSE 5%-WATER 50 ML IV SCH (14:03)
[2022-07-23] MEDS ORDERED: SODIUM CHLORIDE 0.9% 1,000 ML IV ONE (14:30)
[2022-07-23 16:00] VITALS: BP 132/83
[2022-07-23] MEDS: OXYGEN THERAPY IH SCH (19:45)
[2022-07-23 20:00] VITALS: BP 123/74
[2022-07-23] MEDS: MEGESTROL ACETATE 40 MG TABLET PO SCH (20:51)
[2022-07-23] MEDS: HYDROmorphone HCL 2 MG/ML SYRINGE IVP PRN (22:15)
[2022-07-24] VITALS (7 sets, daily range): BP systolic 77–125; BP diastolic 52–76
[2022-07-24] MEDS: MetroNIDAZOLE 500 MG TABLET PO SCH ×4 (00:11→23:43)
[2022-07-24] MEDS: CIPROFLOXACIN 400 MG/D5% WATER 200 ML IV SCH ×2 (02:06→13:43)
[2022-07-24] MEDS: HYDROCODONE/ACETAMINOPHEN 5-325 MG TABLET PO PRN (03:00)
[2022-07-24] MEDS: DEXTROSE 5%-0.45% SODIUM CHL 1,000 ML IV SCH (05:19)
[2022-07-24 06:37] LABS: BASOPHILS % (AUTO) 0.5 % (0.0-2.0); EOSINOPHILS % (AUTO) 0.4 % (1.0-6.0); HEMATOCRIT 28.1 % (41-53); HEMOGLOBIN 9.2 g/dL (13.5-17.5); LYMPHOCYTES % (AUTO) 5.2 % (22.0-44.0); MEAN CORPUSCULAR HEMOGLOBIN 32.1 pg (26.0-34.0); MEAN CORPUSCULAR HGB CONC 32.7 G/dL (31.0-37.0); MEAN CORPUSCULAR VOLUME 98 fL (80-100); MONOCYTES # (AUTO) 1.5 K/uL (0.1-1.0); MONOCYTES % (AUTO) 7.8 % (2.0-9.0); NEUTROPHILS # (AUTO) 16.8 K/uL (1.8-7.7); PLATELET COUNT (AUTO) 112 K/uL (150-450); RED BLOOD CELL COUNT(AUTO) 2.86 MIL/uL (4.50-5.90); RED CELL DISTRIBUTION WIDTH 16.7 % (11.5-14.5)
[2022-07-24 06:51] LABS: ALANINE AMINOTRANSFERASE 15 U/L (12-78); ALBUMIN 2.4 g/dL (3.4-5.0); ALKALINE PHOSPHATASE 79 U/L (46-116); ANION GAP 7 mmol/L (8-16); ASPARTATE AMINOTRANSFERASE 33 U/L (15-37); BILIRUBIN,TOTAL 1.3 mg/dL (0.1-1.0); C-REACTIVE PROTEIN QUANT 9.35 mg/dL (0.00-0.30); CALCIUM, TOTAL 8.5 mg/dL (8.8-10.5); CARBON DIOXIDE 25 mmol/L (22-29); CHLORIDE 104 mmol/L (98-107); CREATININE 0.83 mg/dL (0.60-1.30); GLUCOSE,RANDOM 97 mg/dL (70-110); NEUTROPHILS % (AUTO) 86.1 % (40.0-70.0); POTASSIUM 4.2 mmol/L (3.5-5.1); SODIUM SERUM 136 mmol/L (136-145); TOTAL PROTEIN, SERUM 5.7 g/dL (6.4-8.2); UREA NITROGEN, BLOOD 16 mg/dL (7-18)
[2022-07-24 06:54] LABS: GLOMERULAR FILTR. RATE CALC > 60 mL/min (>60)
[2022-07-24] MEDS: OXYGEN THERAPY IH SCH (08:00)
[2022-07-24] MEDS: DOCUSATE SODIUM 100 MG CAPSULE PO SCH ×2 (08:43→20:36)
[2022-07-24] MEDS: ETHYL ALCOHOL 62% ANTISEPTIC NASAL SANITIZER 0.6 ML AMPUL NASAL SCH ×2 (08:43→20:37)
[2022-07-24] MEDS: MEGESTROL ACETATE 40 MG TABLET PO SCH ×2 (08:43→20:36)
[2022-07-24] MEDS: PANTOPRAZOLE SODIUM 40 MG/VIAL IVP SCH ×2 (08:43→20:37)
[2022-07-24] MEDS: VITAMIN B COMP/VIT C/FOLIC ACID CAPSULE PO SCH (08:43)
[2022-07-24] MEDS: CADEXOMER IODINE 0.9% 40 GM GEL TP SCH (08:45)
[2022-07-24] MEDS: SODIUM HYPOCHLORITE 0.25% [HALF STRENGTH] 473 ML SOLUTION TP SCH (08:45)
[2022-07-24] MEDS: CefTRIAXone SODIUM 2 GM in DEXTROSE 5%-WATER 50 ML IV SCH (13:42)
[2022-07-24] MEDS ORDERED: MIDODRINE HCL 5 MG TABLET PO SCH (14:30)
[2022-07-24] MEDS: MIDODRINE HCL 5 MG TABLET PO SCH ×2 (17:08→23:43)
[2022-07-24] MEDS: ACETAMINOPHEN 325 MG TABLET PO PRN (23:43)
[2022-07-25] VITALS: BP 80/45
[2022-07-25] MEDS: CIPROFLOXACIN 400 MG/D5% WATER 200 ML IV SCH ×2 (00:03→13:28)
[2022-07-25] MEDS: HYDROmorphone HCL 2 MG/ML SYRINGE IVP PRN ×2 (02:58→08:22)
[2022-07-25 04:00] VITALS: BP 104/66
[2022-07-25 05:25] LABS: BASOPHILS % (AUTO) 0.5 % (0.0-2.0); HEMATOCRIT 23.9 % (41-53); HEMOGLOBIN 7.9 g/dL (13.5-17.5); MEAN CORPUSCULAR HEMOGLOBIN 32.2 pg (26.0-34.0); MEAN CORPUSCULAR HGB CONC 33.1 G/dL (31.0-37.0); MEAN CORPUSCULAR VOLUME 97 fL (80-100); MONOCYTES # (AUTO) 1.1 K/uL (0.1-1.0); MONOCYTES % (AUTO) 8.5 % (2.0-9.0); NEUTROPHILS # (AUTO) 10.7 K/uL (1.8-7.7); PLATELET COUNT (AUTO) 227 K/uL (150-450); RED BLOOD CELL COUNT(AUTO) 2.46 MIL/uL (4.50-5.90); RED CELL DISTRIBUTION WIDTH 16.7 % (11.5-14.5)
[2022-07-25 05:41] LABS: ALANINE AMINOTRANSFERASE 16 U/L (12-78); ALBUMIN 2.2 g/dL (3.4-5.0); ALKALINE PHOSPHATASE 83 U/L (46-116); ANION GAP 6 mmol/L (8-16); ASPARTATE AMINOTRANSFERASE 32 U/L (15-37); BILIRUBIN,TOTAL 0.9 mg/dL (0.1-1.0); C-REACTIVE PROTEIN QUANT 8.32 mg/dL (0.00-0.30); CALCIUM, TOTAL 8.6 mg/dL (8.8-10.5); CARBON DIOXIDE 27 mmol/L (22-29); CHLORIDE 103 mmol/L (98-107); CREATININE 0.83 mg/dL (0.60-1.30); GLUCOSE,RANDOM 107 mg/dL (70-110); POTASSIUM 3.7 mmol/L (3.5-5.1); SODIUM SERUM 136 mmol/L (136-145); TOTAL PROTEIN, SERUM 5.4 g/dL (6.4-8.2); UREA NITROGEN, BLOOD 21 mg/dL (7-18)
[2022-07-25 05:42] LABS: GLOMERULAR FILTR. RATE CALC > 60 mL/min (>60)
[2022-07-25 08:00] VITALS: BP 97/67
[2022-07-25] MEDS: OXYGEN THERAPY IH SCH ×2 (08:00→20:00)
[2022-07-25] MEDS: MEGESTROL ACETATE 40 MG TABLET PO SCH ×2 (08:05→20:39)
[2022-07-25] MEDS: DOCUSATE SODIUM 100 MG CAPSULE PO SCH ×2 (08:05→20:39)
[2022-07-25] MEDS: MIDODRINE HCL 5 MG TABLET PO SCH ×2 (08:05→16:48)
[2022-07-25] MEDS: VITAMIN B COMP/VIT C/FOLIC ACID CAPSULE PO SCH (08:05)
[2022-07-25] MEDS: MetroNIDAZOLE 500 MG TABLET PO SCH ×2 (08:06→16:49)
[2022-07-25] MEDS: ETHYL ALCOHOL 62% ANTISEPTIC NASAL SANITIZER 0.6 ML AMPUL NASAL SCH ×2 (08:06→20:40)
[2022-07-25] MEDS: PANTOPRAZOLE SODIUM 40 MG/VIAL IVP SCH ×2 (08:06→20:40)
[2022-07-25] MEDS: SODIUM HYPOCHLORITE 0.25% [HALF STRENGTH] 473 ML SOLUTION TP SCH (08:08)
[2022-07-25] MEDS: CADEXOMER IODINE 0.9% 40 GM GEL TP SCH (08:08)
[2022-07-25] MEDS: HYDROCODONE/ACETAMINOPHEN 5-325 MG TABLET PO PRN (10:29)
[2022-07-25 16:00] VITALS: BP 90/56
[2022-07-25] MEDS: CefTRIAXone SODIUM 2 GM in DEXTROSE 5%-WATER 50 ML IV SCH (16:08)
[2022-07-25] MEDS: PHENYLEPHRINE 200 MG/D5%-WATER 250 ML IV PRN (17:17)
[2022-07-25] MEDS: HYDROCORTISONE SOD SUCC 100 MG/2 ML VIAL IVP SCH (18:53)
[2022-07-25 20:00] VITALS: BP 116/68
[2022-07-26] VITALS: BP 128/63
[2022-07-26] MEDS: HYDROCORTISONE SOD SUCC 100 MG/2 ML VIAL IVP SCH ×4 (00:06→17:10)
[2022-07-26] MEDS: CIPROFLOXACIN 400 MG/D5% WATER 200 ML IV SCH ×2 (00:07→12:02)
[2022-07-26] MEDS: MetroNIDAZOLE 500 MG TABLET PO SCH ×3 (00:07→16:34)
[2022-07-26] MEDS: HYDROCODONE/ACETAMINOPHEN 5-325 MG TABLET PO PRN ×2 (03:26→17:27)
[2022-07-26 04:00] VITALS: BP 119/63
[2022-07-26 05:44] LABS: PHOSPHORUS 3.6 mg/dL (2.5-4.9)
[2022-07-26 08:00] VITALS: BP 104/61
[2022-07-26] MEDS: OXYGEN THERAPY IH SCH ×2 (08:00→20:00)
[2022-07-26] MEDS: DOCUSATE SODIUM 100 MG CAPSULE PO SCH ×2 (08:35→20:48)
[2022-07-26] MEDS: ETHYL ALCOHOL 62% ANTISEPTIC NASAL SANITIZER 0.6 ML AMPUL NASAL SCH ×2 (08:35→20:48)
[2022-07-26] MEDS: PANTOPRAZOLE SODIUM 40 MG/VIAL IVP SCH ×2 (08:35→20:48)
[2022-07-26] MEDS: VITAMIN B COMP/VIT C/FOLIC ACID CAPSULE PO SCH (08:35)
[2022-07-26] MEDS: SODIUM HYPOCHLORITE 0.25% [HALF STRENGTH] 473 ML SOLUTION TP SCH (08:36)
[2022-07-26] MEDS: MEGESTROL ACETATE 40 MG TABLET PO SCH ×2 (08:36→20:48)
[2022-07-26] MEDS: CADEXOMER IODINE 0.9% 40 GM GEL TP SCH (08:37)
[2022-07-26 10:43] LABS: BASOPHILS % (AUTO) 0.2 % (0.0-2.0); EOSINOPHILS % (AUTO) 0 % (1.0-6.0); HEMATOCRIT 25.1 % (41-53); HEMOGLOBIN 8.3 g/dL (13.5-17.5); LYMPHOCYTES # (AUTO) 0.4 K/uL (1.0-4.8); LYMPHOCYTES % (AUTO) 3.1 % (22.0-44.0); MEAN CORPUSCULAR HEMOGLOBIN 32.3 pg (26.0-34.0); MEAN CORPUSCULAR HGB CONC 32.9 G/dL (31.0-37.0); MEAN CORPUSCULAR VOLUME 98 fL (80-100); MONOCYTES # (AUTO) 0.3 K/uL (0.1-1.0); MONOCYTES % (AUTO) 2.7 % (2.0-9.0); NEUTROPHILS # (AUTO) 11.3 K/uL (1.8-7.7); PLATELET COUNT (AUTO) 276 K/uL (150-450); RED BLOOD CELL COUNT(AUTO) 2.57 MIL/uL (4.50-5.90); RED CELL DISTRIBUTION WIDTH 16.7 % (11.5-14.5)
[2022-07-26 11:02] LABS: ANION GAP 6 mmol/L (8-16); CALCIUM, TOTAL 8.5 mg/dL (8.8-10.5); CARBON DIOXIDE 26 mmol/L (22-29); CHLORIDE 102 mmol/L (98-107); CREATININE 0.85 mg/dL (0.60-1.30); GLUCOSE,RANDOM 139 mg/dL (70-110); POTASSIUM 3.9 mmol/L (3.5-5.1); SODIUM SERUM 134 mmol/L (136-145); UREA NITROGEN, BLOOD 22 mg/dL (7-18)
[2022-07-26 11:03] LABS: GLOMERULAR FILTR. RATE CALC > 60 mL/min (>60)
[2022-07-26 12:00] VITALS: BP 120/65
[2022-07-26] MEDS: CefTRIAXone SODIUM 2 GM in DEXTROSE 5%-WATER 50 ML IV SCH (13:55)
[2022-07-26 16:00] VITALS: BP 91/57
[2022-07-26 20:00] VITALS: BP 113/56
[2022-07-26] MEDS: DEXTROSE 5%-0.45% SODIUM CHL 1,000 ML IV SCH (22:10)
[2022-07-27] VITALS (7 sets, daily range): BP systolic 84–109; BP diastolic 47–63
[2022-07-27] MEDS: CIPROFLOXACIN 400 MG/D5% WATER 200 ML IV SCH ×2 (00:13→12:12)
[2022-07-27] MEDS: DEXTROSE 5%-0.45% SODIUM CHL 1,000 ML IV SCH ×2 (00:14→22:10)
[2022-07-27] MEDS: HYDROCORTISONE SOD SUCC 100 MG/2 ML VIAL IVP SCH ×4 (00:14→18:18)
[2022-07-27] MEDS: MetroNIDAZOLE 500 MG TABLET PO SCH ×3 (00:14→16:55)
[2022-07-27] MEDS: OXYGEN THERAPY IH SCH ×2 (08:00→20:00)
[2022-07-27] MEDS: ASCORBIC ACID 500 MG TABLET PO SCH (08:07)
[2022-07-27] MEDS: MEGESTROL ACETATE 40 MG TABLET PO SCH ×2 (08:08→21:05)
[2022-07-27] MEDS: ZINC SULFATE 220 MG CAPSULE PO SCH (08:08)
[2022-07-27] MEDS: PANTOPRAZOLE SODIUM 40 MG/VIAL IVP SCH ×2 (08:08→21:05)
[2022-07-27] MEDS: CADEXOMER IODINE 0.9% 40 GM GEL TP SCH (08:08)
[2022-07-27] MEDS: ETHYL ALCOHOL 62% ANTISEPTIC NASAL SANITIZER 0.6 ML AMPUL NASAL SCH ×2 (08:08→21:05)
[2022-07-27] MEDS: SODIUM HYPOCHLORITE 0.25% [HALF STRENGTH] 473 ML SOLUTION TP SCH (08:09)
[2022-07-27] MEDS: VITAMIN B COMP/VIT C/FOLIC ACID CAPSULE PO SCH (08:52)
[2022-07-27] MEDS: DOCUSATE SODIUM 100 MG CAPSULE PO SCH ×2 (08:52→21:00)
[2022-07-27] MEDS: MIDODRINE HCL 5 MG TABLET PO SCH ×3 (08:59→21:07)
[2022-07-27] MEDS: CefTRIAXone SODIUM 2 GM in DEXTROSE 5%-WATER 50 ML IV SCH (14:17)
[2022-07-27] MEDS: HYDROCODONE/ACETAMINOPHEN 5-325 MG TABLET PO PRN (15:36)
[2022-07-28] VITALS: BP 95/64
[2022-07-28] MEDS: HYDROCORTISONE SOD SUCC 100 MG/2 ML VIAL IVP SCH ×4 (01:30→18:18)
[2022-07-28] MEDS: CIPROFLOXACIN 400 MG/D5% WATER 200 ML IV SCH ×2 (01:31→13:14)
[2022-07-28] MEDS: MetroNIDAZOLE 500 MG TABLET PO SCH ×3 (01:31→16:21)
[2022-07-28 04:00] VITALS: BP 108/50
[2022-07-28] MEDS: DEXTROSE 5%-0.45% SODIUM CHL 1,000 ML IV SCH ×2 (05:31→23:00)
[2022-07-28 06:31] LABS: EOSINOPHILS % (AUTO) 0 % (1.0-6.0); HEMATOCRIT 21.5 % (41-53); HEMOGLOBIN 7.4 g/dL (13.5-17.5); LYMPHOCYTES # (AUTO) 0.3 K/uL (1.0-4.8); LYMPHOCYTES % (AUTO) 4.5 % (22.0-44.0); MEAN CORPUSCULAR HEMOGLOBIN 33.1 pg (26.0-34.0); MEAN CORPUSCULAR HGB CONC 34.3 G/dL (31.0-37.0); MEAN CORPUSCULAR VOLUME 97 fL (80-100); MONOCYTES # (AUTO) 0.4 K/uL (0.1-1.0); MONOCYTES % (AUTO) 5.4 % (2.0-9.0); NEUTROPHILS # (AUTO) 6.5 K/uL (1.8-7.7); PLATELET COUNT (AUTO) 283 K/uL (150-450); RED BLOOD CELL COUNT(AUTO) 2.23 MIL/uL (4.50-5.90); RED CELL DISTRIBUTION WIDTH 16.6 % (11.5-14.5)
[2022-07-28 06:56] LABS: ALANINE AMINOTRANSFERASE 50 U/L (12-78); ALKALINE PHOSPHATASE 83 U/L (46-116); ANION GAP 3 mmol/L (8-16); ASPARTATE AMINOTRANSFERASE 84 U/L (15-37); BILIRUBIN,TOTAL 0.4 mg/dL (0.1-1.0); C-REACTIVE PROTEIN QUANT 1.71 mg/dL (0.00-0.30); CALCIUM, TOTAL 8.1 mg/dL (8.8-10.5); CARBON DIOXIDE 29 mmol/L (22-29); CHLORIDE 104 mmol/L (98-107); CREATININE 0.88 mg/dL (0.60-1.30); GLUCOSE,RANDOM 120 mg/dL (70-110); POTASSIUM 3.6 mmol/L (3.5-5.1); SODIUM SERUM 136 mmol/L (136-145); TOTAL PROTEIN, SERUM 5.2 g/dL (6.4-8.2); UREA NITROGEN, BLOOD 32 mg/dL (7-18)
[2022-07-28 06:59] LABS: GLOMERULAR FILTR. RATE CALC > 60 mL/min (>60)
[2022-07-28 07:14] LABS: NEUTROPHILS % (AUTO) 90.1 % (40.0-70.0)
[2022-07-28 08:00] VITALS: BP 107/64
[2022-07-28] MEDS: PANTOPRAZOLE SODIUM 40 MG/VIAL IVP SCH ×2 (08:21→20:44)
[2022-07-28] MEDS: OXYGEN THERAPY IH SCH ×2 (08:22→23:01)
[2022-07-28] MEDS: ASCORBIC ACID 500 MG TABLET PO SCH (08:22)
[2022-07-28] MEDS: ETHYL ALCOHOL 62% ANTISEPTIC NASAL SANITIZER 0.6 ML AMPUL NASAL SCH ×2 (08:22→20:45)
[2022-07-28] MEDS: MIDODRINE HCL 5 MG TABLET PO SCH ×3 (08:23→20:46)
[2022-07-28] MEDS: MEGESTROL ACETATE 40 MG TABLET PO SCH ×2 (08:23→20:46)
[2022-07-28] MEDS: VITAMIN B COMP/VIT C/FOLIC ACID CAPSULE PO SCH (08:23)
[2022-07-28] MEDS: CADEXOMER IODINE 0.9% 40 GM GEL TP SCH (08:24)
[2022-07-28] MEDS: SODIUM HYPOCHLORITE 0.25% [HALF STRENGTH] 473 ML SOLUTION TP SCH (08:24)
[2022-07-28] MEDS: ZINC SULFATE 220 MG CAPSULE PO SCH (08:24)
[2022-07-28] MEDS: DOCUSATE SODIUM 100 MG CAPSULE PO SCH ×2 (09:08→20:45)
[2022-07-28 12:00] VITALS: BP 92/54
[2022-07-28] MEDS: CefTRIAXone SODIUM 2 GM in DEXTROSE 5%-WATER 50 ML IV SCH (14:39)
[2022-07-28 16:00] VITALS: BP 108/50
[2022-07-28 20:00] VITALS: BP 109/72
[2022-07-29] VITALS (7 sets, daily range): BP systolic 98–115; BP diastolic 54–72
[2022-07-29] MEDS: MetroNIDAZOLE 500 MG TABLET PO SCH ×3 (00:36→15:27)
[2022-07-29] MEDS: HYDROCORTISONE SOD SUCC 100 MG/2 ML VIAL IVP SCH ×4 (00:36→18:16)
[2022-07-29] MEDS: CIPROFLOXACIN 400 MG/D5% WATER 200 ML IV SCH ×2 (00:37→13:13)
[2022-07-29] MEDS: OXYGEN THERAPY IH SCH ×2 (07:46→20:00)
[2022-07-29] MEDS: SODIUM HYPOCHLORITE 0.25% [HALF STRENGTH] 473 ML SOLUTION TP SCH (07:46)
[2022-07-29] MEDS: CADEXOMER IODINE 0.9% 40 GM GEL TP SCH (07:46)
[2022-07-29] MEDS: VITAMIN B COMP/VIT C/FOLIC ACID CAPSULE PO SCH (07:54)
[2022-07-29] MEDS: MIDODRINE HCL 5 MG TABLET PO SCH ×3 (07:54→20:44)
[2022-07-29] MEDS: MEGESTROL ACETATE 40 MG TABLET PO SCH ×2 (07:54→20:43)
[2022-07-29] MEDS: PANTOPRAZOLE SODIUM 40 MG/VIAL IVP SCH ×2 (07:54→20:44)
[2022-07-29] MEDS: DOCUSATE SODIUM 100 MG CAPSULE PO SCH ×3 (07:55→22:01)
[2022-07-29] MEDS: ETHYL ALCOHOL 62% ANTISEPTIC NASAL SANITIZER 0.6 ML AMPUL NASAL SCH ×2 (07:55→20:43)
[2022-07-29] MEDS: ASCORBIC ACID 500 MG TABLET PO SCH (07:55)
[2022-07-29] MEDS: ZINC SULFATE 220 MG CAPSULE PO SCH (07:55)
[2022-07-29] MEDS: CefTRIAXone SODIUM 2 GM in DEXTROSE 5%-WATER 50 ML IV SCH (14:36)
[2022-07-29] MEDS: DEXTROSE 5%-0.45% SODIUM CHL 1,000 ML IV SCH (23:12)
[2022-07-30] VITALS: BP 106/58
[2022-07-30] MEDS ORDERED: SODIUM CHLORIDE 0.9% 500 ML IV ONE (00:35)
[2022-07-30] MEDS: HYDROCORTISONE SOD SUCC 100 MG/2 ML VIAL IVP SCH ×3 (00:37→12:47)
[2022-07-30] MEDS: CIPROFLOXACIN 400 MG/D5% WATER 200 ML IV SCH ×2 (00:38→12:48)
[2022-07-30] MEDS: MetroNIDAZOLE 500 MG TABLET PO SCH ×3 (00:38→15:31)
[2022-07-30 05:00] VITALS: BP 99/59
[2022-07-30 07:17] LABS: BASOPHILS % (AUTO) 0.1 % (0.0-2.0); EOSINOPHILS % (AUTO) 0 % (1.0-6.0); HEMATOCRIT 23.1 % (41-53); HEMOGLOBIN 7.8 g/dL (13.5-17.5); LYMPHOCYTES # (AUTO) 0.5 K/uL (1.0-4.8); LYMPHOCYTES % (AUTO) 6.7 % (22.0-44.0); MEAN CORPUSCULAR HEMOGLOBIN 32.8 pg (26.0-34.0); MEAN CORPUSCULAR HGB CONC 33.7 G/dL (31.0-37.0); MEAN CORPUSCULAR VOLUME 97 fL (80-100); MONOCYTES # (AUTO) 0.7 K/uL (0.1-1.0); MONOCYTES % (AUTO) 8.4 % (2.0-9.0); NEUTROPHILS # (AUTO) 6.9 K/uL (1.8-7.7); NEUTROPHILS % (AUTO) 84.8 % (40.0-70.0); PLATELET COUNT (AUTO) 272 K/uL (150-450); RED BLOOD CELL COUNT(AUTO) 2.37 MIL/uL (4.50-5.90); RED CELL DISTRIBUTION WIDTH 16.5 % (11.5-14.5)
[2022-07-30 07:35] LABS: ANION GAP 4 mmol/L (8-16); C-REACTIVE PROTEIN QUANT 0.92 mg/dL (0.00-0.30); CALCIUM, TOTAL 8.3 mg/dL (8.8-10.5); CARBON DIOXIDE 29 mmol/L (22-29); CHLORIDE 104 mmol/L (98-107); CREATININE 0.87 mg/dL (0.60-1.30); GLUCOSE,RANDOM 107 mg/dL (70-110); POTASSIUM 3.2 mmol/L (3.5-5.1); SODIUM SERUM 137 mmol/L (136-145); UREA NITROGEN, BLOOD 29 mg/dL (7-18)
[2022-07-30 07:36] LABS: GLOMERULAR FILTR. RATE CALC > 60 mL/min (>60)
[2022-07-30 07:51] VITALS: BP 128/67
[2022-07-30] MEDS: OXYGEN THERAPY IH SCH ×2 (08:00→20:00)
[2022-07-30] MEDS: MEGESTROL ACETATE 40 MG TABLET PO SCH ×2 (08:22→20:55)
[2022-07-30] MEDS: ZINC SULFATE 220 MG CAPSULE PO SCH (08:23)
[2022-07-30] MEDS: ETHYL ALCOHOL 62% ANTISEPTIC NASAL SANITIZER 0.6 ML AMPUL NASAL SCH ×2 (08:23→20:57)
[2022-07-30] MEDS: MIDODRINE HCL 5 MG TABLET PO SCH ×3 (08:23→20:56)
[2022-07-30] MEDS: PANTOPRAZOLE SODIUM 40 MG/VIAL IVP SCH ×2 (08:24→20:55)
[2022-07-30] MEDS: ASCORBIC ACID 500 MG TABLET PO SCH (08:24)
[2022-07-30] MEDS: VITAMIN B COMP/VIT C/FOLIC ACID CAPSULE PO SCH (08:24)
[2022-07-30] MEDS: CADEXOMER IODINE 0.9% 40 GM GEL TP SCH (08:25)
[2022-07-30] MEDS: SODIUM HYPOCHLORITE 0.25% [HALF STRENGTH] 473 ML SOLUTION TP SCH (08:25)
[2022-07-30 11:42] VITALS: BP 99/65
[2022-07-30] MEDS: CefTRIAXone SODIUM 2 GM in DEXTROSE 5%-WATER 50 ML IV SCH (15:31)
[2022-07-30 15:59] VITALS: BP 116/71
[2022-07-30] MEDS ORDERED: POTASSIUM CHL 10 MEQ/WATER 50 ML IV PRN (17:45)
[2022-07-30] MEDS ORDERED: POTASSIUM CHLORIDE 20 MEQ ER TABLET PO PRN (17:45)
[2022-07-30 19:45] VITALS: BP 97/62
[2022-07-30] MEDS: DOCUSATE SODIUM 100 MG CAPSULE PO SCH (20:56)
[2022-07-30] MEDS: DEXTROSE 5%-0.45% SODIUM CHL 1,000 ML IV SCH ×2 (20:57→21:03)
[2022-07-31] VITALS (7 sets, daily range): BP systolic 91–146; BP diastolic 51–81
[2022-07-31] MEDS: CIPROFLOXACIN 400 MG/D5% WATER 200 ML IV SCH ×2 (00:25→12:03)
[2022-07-31] MEDS: MetroNIDAZOLE 500 MG TABLET PO SCH ×3 (00:26→14:57)
[2022-07-31 06:11] LABS: ANION GAP 3 mmol/L (8-16); CALCIUM, TOTAL 7.9 mg/dL (8.8-10.5); CARBON DIOXIDE 29 mmol/L (22-29); CHLORIDE 104 mmol/L (98-107); CREATININE 0.79 mg/dL (0.60-1.30); GLUCOSE,RANDOM 87 mg/dL (70-110); POTASSIUM 3.5 mmol/L (3.5-5.1); SODIUM SERUM 136 mmol/L (136-145); UREA NITROGEN, BLOOD 26 mg/dL (7-18)
[2022-07-31 06:19] LABS: GLOMERULAR FILTR. RATE CALC > 60 mL/min (>60)
[2022-07-31] MEDS: OXYGEN THERAPY IH SCH ×2 (08:00→20:00)
[2022-07-31] MEDS: PANTOPRAZOLE SODIUM 40 MG/VIAL IVP SCH ×2 (08:24→20:23)
[2022-07-31] MEDS: ASCORBIC ACID 500 MG TABLET PO SCH (08:24)
[2022-07-31] MEDS: VITAMIN B COMP/VIT C/FOLIC ACID CAPSULE PO SCH (08:24)
[2022-07-31] MEDS: ZINC SULFATE 220 MG CAPSULE PO SCH (08:24)
[2022-07-31] MEDS: MEGESTROL ACETATE 40 MG TABLET PO SCH ×2 (08:24→20:23)
[2022-07-31] MEDS: MIDODRINE HCL 5 MG TABLET PO SCH ×3 (08:25→20:23)
[2022-07-31] MEDS: DOCUSATE SODIUM 100 MG CAPSULE PO SCH ×2 (08:25→20:24)
[2022-07-31] MEDS: SODIUM HYPOCHLORITE 0.25% [HALF STRENGTH] 473 ML SOLUTION TP SCH (08:27)
[2022-07-31] MEDS: CADEXOMER IODINE 0.9% 40 GM GEL TP SCH (08:27)
[2022-07-31] MEDS: ETHYL ALCOHOL 62% ANTISEPTIC NASAL SANITIZER 0.6 ML AMPUL NASAL SCH ×2 (08:30→20:25)
[2022-07-31] MEDS: CefTRIAXone SODIUM 2 GM in DEXTROSE 5%-WATER 50 ML IV SCH (14:57)
[2022-07-31] MEDS: HYDROCODONE/ACETAMINOPHEN 5-325 MG TABLET PO PRN (16:10)
[2022-08-01] MEDS: CIPROFLOXACIN 400 MG/D5% WATER 200 ML IV SCH ×2 (00:34→13:49)
[2022-08-01] MEDS: MetroNIDAZOLE 500 MG TABLET PO SCH ×3 (00:34→16:34)
[2022-08-01] MEDS: DEXTROSE 5%-0.45% SODIUM CHL 1,000 ML IV SCH (00:34)
[2022-08-01 04:55] VITALS: BP 99/67
[2022-08-01 06:24] LABS: BASOPHILS % (AUTO) 0.2 % (0.0-2.0); EOSINOPHILS % (AUTO) 0.5 % (1.0-6.0); HEMATOCRIT 26.3 % (41-53); HEMOGLOBIN 8.7 g/dL (13.5-17.5); LYMPHOCYTES % (AUTO) 11.2 % (22.0-44.0); MEAN CORPUSCULAR HEMOGLOBIN 32.2 pg (26.0-34.0); MEAN CORPUSCULAR HGB CONC 33.1 G/dL (31.0-37.0); MEAN CORPUSCULAR VOLUME 97 fL (80-100); MONOCYTES # (AUTO) 0.9 K/uL (0.1-1.0); NEUTROPHILS # (AUTO) 7.3 K/uL (1.8-7.7); NEUTROPHILS % (AUTO) 78.1 % (40.0-70.0); PLATELET COUNT (AUTO) 345 K/uL (150-450); RED BLOOD CELL COUNT(AUTO) 2.71 MIL/uL (4.50-5.90); RED CELL DISTRIBUTION WIDTH 17.1 % (11.5-14.5)
[2022-08-01 06:28] LABS: ALANINE AMINOTRANSFERASE 43 U/L (12-78); ALBUMIN 1.9 g/dL (3.4-5.0); ALKALINE PHOSPHATASE 72 U/L (46-116); ANION GAP 3 mmol/L (8-16); ASPARTATE AMINOTRANSFERASE 44 U/L (15-37); BILIRUBIN,TOTAL 0.6 mg/dL (0.1-1.0); C-REACTIVE PROTEIN QUANT 2.43 mg/dL (0.00-0.30); CALCIUM, TOTAL 8.1 mg/dL (8.8-10.5); CARBON DIOXIDE 28 mmol/L (22-29); CHLORIDE 103 mmol/L (98-107); CREATININE 0.63 mg/dL (0.60-1.30); GLUCOSE,RANDOM 84 mg/dL (70-110); POTASSIUM 3.9 mmol/L (3.5-5.1); SODIUM SERUM 134 mmol/L (136-145); TOTAL PROTEIN, SERUM 4.8 g/dL (6.4-8.2); UREA NITROGEN, BLOOD 22 mg/dL (7-18)
[2022-08-01 06:40] LABS: GLOMERULAR FILTR. RATE CALC > 60 mL/min (>60)
[2022-08-01 07:44] VITALS: BP 100/61
[2022-08-01] MEDS ORDERED: RINGERS SOLUTION,LACTATED 1,000 ML IV ONE ×2 (07:47→10:00)
[2022-08-01] MEDS: VITAMIN B COMP/VIT C/FOLIC ACID CAPSULE PO SCH (08:00)
[2022-08-01] MEDS: DOCUSATE SODIUM 100 MG CAPSULE PO SCH ×2 (08:07→20:11)
[2022-08-01] MEDS: ASCORBIC ACID 500 MG TABLET PO SCH (08:07)
[2022-08-01] MEDS: ZINC SULFATE 220 MG CAPSULE PO SCH (08:07)
[2022-08-01] MEDS: MEGESTROL ACETATE 40 MG TABLET PO SCH ×2 (08:07→20:10)
[2022-08-01] MEDS: MIDODRINE HCL 5 MG TABLET PO SCH ×3 (08:07→20:09)
[2022-08-01] MEDS: PANTOPRAZOLE SODIUM 40 MG/VIAL IVP SCH ×2 (08:32→20:09)
[2022-08-01] MEDS: ETHYL ALCOHOL 62% ANTISEPTIC NASAL SANITIZER 0.6 ML AMPUL NASAL SCH ×2 (08:32→20:12)
[2022-08-01] MEDS: CADEXOMER IODINE 0.9% 40 GM GEL TP SCH (08:37)
[2022-08-01] MEDS: SODIUM HYPOCHLORITE 0.25% [HALF STRENGTH] 473 ML SOLUTION TP SCH (08:37)
[2022-08-01] MEDS: OXYGEN THERAPY IH SCH (08:39)
[2022-08-01] MEDS ORDERED: SODIUM CL IRRIG SOLN BAG 3,000 ML IRRIG ONE (08:56)
[2022-08-01] MEDS ORDERED: BUPIVACAINE HCL/PF 0.25% 30 ML VIAL ONE (08:56)
[2022-08-01] MEDS ORDERED: BUPIVACAINE 0.25%/EPI 1:200,000/PF 10 ML VIAL ONE (09:39)
[2022-08-01] MEDS ORDERED: FentaNYL CITRATE PF 100 MCG/2 ML VIAL IVP ONE (12:00)
[2022-08-01] MEDS ORDERED: HYDROmorphone HCL 2 MG/ML SYRINGE IVP PRN (12:00)
[2022-08-01] MEDS ORDERED: FentaNYL CITRATE PF 100 MCG/2 ML VIAL IVP PRN (12:00)
[2022-08-01] MEDS: CefTRIAXone SODIUM 2 GM in DEXTROSE 5%-WATER 50 ML IV SCH (13:58)
[2022-08-01 15:02] VITALS: BP 92/56
[2022-08-01 19:28] VITALS: BP 107/50
[2022-08-01 23:31] VITALS: BP 106/67
[2022-08-02] MEDS: MetroNIDAZOLE 500 MG TABLET PO SCH ×4 (00:09→23:21)
[2022-08-02] MEDS: CIPROFLOXACIN 400 MG/D5% WATER 200 ML IV SCH ×2 (00:09→13:17)
[2022-08-02] MEDS: DEXTROSE 5%-0.45% SODIUM CHL 1,000 ML IV SCH (00:10)
[2022-08-02 05:25] VITALS: BP 102/81
[2022-08-02 07:03] VITALS: BP 106/78
[2022-08-02] MEDS: OXYGEN THERAPY IH SCH ×3 (08:00→20:00)
[2022-08-02] MEDS: MEGESTROL ACETATE 40 MG TABLET PO SCH ×2 (08:24→20:55)
[2022-08-02] MEDS: MIDODRINE HCL 5 MG TABLET PO SCH ×3 (08:24→20:55)
[2022-08-02] MEDS: ASCORBIC ACID 500 MG TABLET PO SCH (08:24)
[2022-08-02] MEDS: ETHYL ALCOHOL 62% ANTISEPTIC NASAL SANITIZER 0.6 ML AMPUL NASAL SCH ×2 (08:25→20:55)
[2022-08-02] MEDS: PANTOPRAZOLE SODIUM 40 MG/VIAL IVP SCH ×2 (08:25→20:54)
[2022-08-02] MEDS: SODIUM HYPOCHLORITE 0.25% [HALF STRENGTH] 473 ML SOLUTION TP SCH (08:25)
[2022-08-02] MEDS: ZINC SULFATE 220 MG CAPSULE PO SCH (08:25)
[2022-08-02] MEDS: DOCUSATE SODIUM 100 MG CAPSULE PO SCH ×2 (08:25→20:55)
[2022-08-02] MEDS: CADEXOMER IODINE 0.9% 40 GM GEL TP SCH (08:26)
[2022-08-02] MEDS: VITAMIN B COMP/VIT C/FOLIC ACID CAPSULE PO SCH (08:27)
[2022-08-02 10:56] VITALS: BP 102/68
[2022-08-02 14:51] VITALS: BP 109/68
[2022-08-02] MEDS: CefTRIAXone SODIUM 2 GM in DEXTROSE 5%-WATER 50 ML IV SCH (15:50)
[2022-08-02 19:28] VITALS: BP 128/64
[2022-08-02] MEDS ORDERED: CIPROFLOXACIN 400 MG/D5% WATER 200 ML IV ONE (21:00)
[2022-08-02] MEDS: HYDROCODONE/ACETAMINOPHEN 5-325 MG TABLET PO PRN (23:21)
[2022-08-02 23:29] VITALS: BP 118/73
[2022-08-03 04:26] VITALS: BP 105/60
[2022-08-03 06:43] LABS: BASOPHILS % (AUTO) 0.3 % (0.0-2.0); EOSINOPHILS % (AUTO) 0.5 % (1.0-6.0); HEMATOCRIT 24.2 % (41-53); HEMOGLOBIN 8.3 g/dL (13.5-17.5); LYMPHOCYTES # (AUTO) 1.1 K/uL (1.0-4.8); LYMPHOCYTES % (AUTO) 12.9 % (22.0-44.0); MEAN CORPUSCULAR HEMOGLOBIN 33.3 pg (26.0-34.0); MEAN CORPUSCULAR HGB CONC 34.2 G/dL (31.0-37.0); MEAN CORPUSCULAR VOLUME 97 fL (80-100); MONOCYTES # (AUTO) 1.2 K/uL (0.1-1.0); MONOCYTES % (AUTO) 13.2 % (2.0-9.0); NEUTROPHILS # (AUTO) 6.5 K/uL (1.8-7.7); NEUTROPHILS % (AUTO) 73.1 % (40.0-70.0); PLATELET COUNT (AUTO) 335 K/uL (150-450); RED BLOOD CELL COUNT(AUTO) 2.48 MIL/uL (4.50-5.90); RED CELL DISTRIBUTION WIDTH 17.5 % (11.5-14.5)
[2022-08-03 07:01] LABS: ALANINE AMINOTRANSFERASE 31 U/L (12-78); ALBUMIN 1.9 g/dL (3.4-5.0); ALKALINE PHOSPHATASE 73 U/L (46-116); ANION GAP 2 mmol/L (8-16); ASPARTATE AMINOTRANSFERASE 32 U/L (15-37); BILIRUBIN,TOTAL 0.7 mg/dL (0.1-1.0); CALCIUM, TOTAL 7.9 mg/dL (8.8-10.5); CARBON DIOXIDE 29 mmol/L (22-29); CHLORIDE 105 mmol/L (98-107); CREATININE 0.73 mg/dL (0.60-1.30); GLUCOSE,RANDOM 89 mg/dL (70-110); POTASSIUM 3.9 mmol/L (3.5-5.1); SODIUM SERUM 136 mmol/L (136-145); TOTAL PROTEIN, SERUM 4.9 g/dL (6.4-8.2); UREA NITROGEN, BLOOD 17 mg/dL (7-18)
[2022-08-03 07:03] LABS: GLOMERULAR FILTR. RATE CALC > 60 mL/min (>60)
[2022-08-03 07:39] VITALS: BP 109/69
[2022-08-03] MEDS: OXYGEN THERAPY IH SCH (08:00)
[2022-08-03] MEDS: MIDODRINE HCL 5 MG TABLET PO SCH ×2 (08:36→15:28)
[2022-08-03] MEDS: MetroNIDAZOLE 500 MG TABLET PO SCH ×2 (08:37→15:28)
[2022-08-03] MEDS: ASCORBIC ACID 500 MG TABLET PO SCH (08:37)
[2022-08-03] MEDS: ZINC SULFATE 220 MG CAPSULE PO SCH (08:37)
[2022-08-03] MEDS: MEGESTROL ACETATE 40 MG TABLET PO SCH (08:37)
[2022-08-03] MEDS: ETHYL ALCOHOL 62% ANTISEPTIC NASAL SANITIZER 0.6 ML AMPUL NASAL SCH (08:37)
[2022-08-03] MEDS: DOCUSATE SODIUM 100 MG CAPSULE PO SCH (08:37)
[2022-08-03] MEDS: PANTOPRAZOLE SODIUM 40 MG/VIAL IVP SCH (08:37)
[2022-08-03] MEDS: VITAMIN B COMP/VIT C/FOLIC ACID CAPSULE PO SCH (08:37)
[2022-08-03] MEDS: SODIUM HYPOCHLORITE 0.25% [HALF STRENGTH] 473 ML SOLUTION TP SCH (08:38)
[2022-08-03] MEDS: CADEXOMER IODINE 0.9% 40 GM GEL TP SCH (08:38)
[2022-08-03] MEDS ORDERED: CIPROFLOXACIN HCL 250 MG TABLET PO SCH (09:00)
[2022-08-03 10:52] VITALS: BP 100/50
[2022-08-03 15:08] VITALS: BP 111/62
[2022-08-03] MEDS: CefTRIAXone SODIUM 2 GM in DEXTROSE 5%-WATER 50 ML IV SCH (15:28)
== END 2022-08-03 18:20 | DRG 853 ==
LOC: EMS 08:59 → UNDOADMIN 07-17 09:28 → ICUN 07-17 09:28 → ICU 07-17 18:40 → 5S 07-29 18:00
PROVIDERS: ADMIT Internal Medicine; ATTEND Internal Medicine
PROC: 0KBP0ZZ Excision of Left Hip Muscle, Open Approach (ICD-10-PCS; principal; 2022-07-19)
PROC: 0KBN0ZZ Excision of Right Hip Muscle, Open Approach (ICD-10-PCS; 2022-07-19)
PROC: 30233N1 Transfusion of Nonautologous Red Blood Cells into Peripheral Vein, Percutaneous Approach (ICD-10-PCS; 2022-07-19)
PROC: 0DTN4ZZ Resection of Sigmoid Colon, Percutaneous Endoscopic Approach (ICD-10-PCS; 2022-08-01)
PROC: 0D1M4Z4 Bypass Descending Colon to Cutaneous, Percutaneous Endoscopic Approach (ICD-10-PCS; 2022-08-01)
DX: A41.9 Sepsis, unspecified organism (principal); E43 Unspecified severe protein-calorie malnutrition; K68.12 Psoas muscle abscess; R65.21 Severe sepsis with septic shock; L89.154 Pressure ulcer of sacral region, stage 4; K56.2 Volvulus; G93.49 Other encephalopathy; E87.20 Acidosis, unspecified; N17.9 Acute kidney failure, unspecified; I50.30 Unspecified diastolic (congestive) heart failure; N39.0 Urinary tract infection, site not specified; M48.061 Spinal stenosis, lumbar region without neurogenic claudication; E87.6 Hypokalemia; E86.0 Dehydration; F17.210 Nicotine dependence, cigarettes, uncomplicated; M48.02 Spinal stenosis, cervical region; M46.46 Discitis, unspecified, lumbar region; E87.5 Hyperkalemia; D64.9 Anemia, unspecified; K82.8 Other specified diseases of gallbladder; K80.20 Calculus of gallbladder without cholecystitis without obstruction; E83.39 Other disorders of phosphorus metabolism; Z20.822 Contact with and (suspected) exposure to COVID-19; E83.42 Hypomagnesemia; E88.09 Other disorders of plasma-protein metabolism, not elsewhere classified; I11.0 Hypertensive heart disease with heart failure; T36.0X5A Adverse effect of penicillins, initial encounter; N32.3 Diverticulum of bladder; Z74.01 Bed confinement status; Z88.1 Allergy status to other antibiotic agents; Z68.25 Body mass index [BMI] 25.0-25.9, adult; Z88.0 Allergy status to penicillin; Z99.2 Dependence on renal dialysis; Z79.899 Other long term (current) drug therapy; Z79.2 Long term (current) use of antibiotics; Y92.89 Other specified places as the place of occurrence of the external cause
CPT/HCPCS: 36245; 36556; 36569; 36600; 51702; 70450; 71045; 72156; 72158; 72197; 74176; 76705; 76937; 78315; 80048; 80053; 81001; 81002; 82140; 82271; 82550; 82728; 82805; 83540; 83550; 83605; 83690; 83735; 83874; 83880; 83970; 84100; 84132; 84484; 85014; 85018; 85025; 85610; 85730; 86140; 86709; 86850; 86900; 86901; 86923; 87040; 87070; 87077; 87081; 87086; 87186; 87205; 87340; 87804; 93005; 93306; 97110; 97163; 97530; 99291; A9503; C9113; G0378; G0480; J0610; J0690; J0696; J0744; J0878; J1100; J1170; J1644; J1720; J1815; J1956; J2270; J2370; J2405; J2704; J3010; J3370; J3475; J3480; J3490; J7030; J7040; J7042; J7050; J7060; J7120; P9016; P9041; P9046; P9047; Q9967; 36415-L1; 36415-TC; X7700; Z7610

== ENCOUNTER 2022-10-09 20:43 | Inpatient (IN) | payer MEDICARE ==
[~2022-10-09] VITALS: Ht 170.2 cm; Wt 52.2 kg
[2022-10-09] MEDS ORDERED: TRAM-559 PO (21:38)
[2022-10-09] MEDS ORDERED: PANT-31 PO (21:38)
[2022-10-09] MEDS ORDERED: ASCO500 PO (21:38)
[2022-10-09] MEDS ORDERED: B CO1CAP6 PO (21:38)
[2022-10-09] MEDS ORDERED: FERR-82 PO (21:38)
[2022-10-09] MEDS ORDERED: MEGE400O5 PO (21:38)
[2022-10-09] MEDS ORDERED: BISA10SU61 PR (21:40)
[2022-10-09] MEDS ORDERED: ZINC220T4 PO (21:40)
[2022-10-09] MEDS ORDERED: MIDO5TAB29 PO (21:40)
[2022-10-09 22:30] LABS: BASOPHILS % (AUTO) 0.1 % (0.0-2.0); EOSINOPHILS % (AUTO) 0 % (1.0-6.0); HEMATOCRIT 32.2 % (41-53); HEMOGLOBIN 10.3 g/dL (13.5-17.5); LYMPHOCYTES # (AUTO) 1.2 K/uL (1.0-4.8); LYMPHOCYTES % (AUTO) 5.1 % (22.0-44.0); MEAN CORPUSCULAR HEMOGLOBIN 28.5 pg (26.0-34.0); MEAN CORPUSCULAR HGB CONC 31.9 G/dL (31.0-37.0); MEAN CORPUSCULAR VOLUME 89 fL (80-100); MONOCYTES # (AUTO) 1.4 K/uL (0.1-1.0); MONOCYTES % (AUTO) 6.2 % (2.0-9.0); NEUTROPHILS # (AUTO) 20.2 K/uL (1.8-7.7); PLATELET COUNT (AUTO) 388 K/uL (150-450); RED BLOOD CELL COUNT(AUTO) 3.61 MIL/uL (4.50-5.90); RED CELL DISTRIBUTION WIDTH 15.8 % (11.5-14.5)
[2022-10-09] MEDS ORDERED: MORPHINE SULFATE 4 MG/ML SYRINGE IVP ONE (22:30)
[2022-10-09 22:32] LABS: COVID AG,FIA SOURCE NASOPHARYNGEAL
[2022-10-09 22:37] LABS: NEUTROPHILS % (AUTO) 88.6 % (40.0-70.0)
[2022-10-09 22:40] LABS: CALCIUM, TOTAL 9.5 mg/dL (8.8-10.5); CREATININE 2.53 mg/dL (0.60-1.30); POTASSIUM 5.5 mmol/L (3.5-5.1)
[2022-10-09 22:42] LABS: INR 1.1 (0.9-1.1); PROTHROMBIN TIME 11.9 SEC (9.4-11.6)
[2022-10-09 22:45] LABS: ALBUMIN 2.3 g/dL (3.4-5.0); BILIRUBIN,TOTAL 1.2 mg/dL (0.1-1.0); TOTAL PROTEIN, SERUM 6.7 g/dL (6.4-8.2)
[2022-10-09 22:54] LABS: LACTIC ACID 4.3 mmol/L (0.4-2.0)
[2022-10-09 23:00] LABS: AMMONIA 16 umol/L (11-32)
[2022-10-09] MEDS ORDERED: MetroNIDAZOLE 500 MG/NACL 100 ML IV ONE (23:00)
[2022-10-09] MEDS ORDERED: LEVOFLOXACIN 750 MG/D5% WATER 150 ML IV ONE (23:00)
[2022-10-09] MEDS ORDERED: SODIUM CHLORIDE 0.9% 1,000 ML IV ONE (23:00)
[2022-10-09] MEDS ORDERED: VANCOMYCIN 1GM/WATER(PEG/NADA) 200 ML IV ONE ×2 (23:00→23:45)
[2022-10-09 23:02] LABS: APPEARANCE,URINE HAZY (CLEAR); BILIRUBIN,URINE NEGATIVE (NEGATIVE); GLUCOSE, URINE (UA) NEGATIVE (NEGATIVE); KETONES,URINE NEGATIVE (NEGATIVE); LEUKOCYTE ESTERASE ,URINE LARGE (NEGATIVE); NITRATE,URINE NEGATIVE (NEGATIVE); OCCULT BLOOD,URINE TRACE (NEGATIVE); PROTEIN,URINE 30-70 mg/dL (NEGATIVE); SPECIFIC GRAVITIY, URINE 1.017 (1.003-1.030); UROBILINOGEN,URINE <=1.0 mg/dL (<=1.0)
[2022-10-09 23:10] LABS: BACTERIA,URINE Moderate /HPF (None Seen); WBC,URINE 26-50 /HPF (0-5)
[2022-10-09 23:11] LABS: SQUAMOUS EPITHELIAL CELL,UR Rare /LPF (None Seen)
[2022-10-09] MEDS ORDERED: ONDANSETRON HCL 4 MG/2 ML VIAL IVP PRN (23:15)
[2022-10-09] MEDS ORDERED: *CLINICAL-CEFEPIME DOSING CLINICAL ONE (23:15)
[2022-10-09] MEDS ORDERED: SODIUM CHLORIDE 0.9% 1,000 ML IV SCH (23:15)
[2022-10-09] MEDS ORDERED: INSULIN REGULAR, HUMAN 100 UNITS/ML SQ ONE (23:30)
[2022-10-09] MEDS ORDERED: DEXTROSE 50%-WATER 25 GM/50 ML SYRINGE IVP ONE (23:30)
[2022-10-09 23:31] LABS: CREATININE,URINE RANDOM 108.4 mg/dL (30.0-125.0)
[2022-10-09] MEDS ORDERED: VANCOMYCIN 1GM/WATER(PEG/NADA) 200 ML IV PRN (23:45)
[2022-10-10] MEDS ORDERED: INSULIN REGULAR, HUMAN 100 UNITS/ML IVP ONE
[2022-10-10] MEDS ORDERED: HEPARIN SODIUM,PORCINE 5,000 UNITS/ML VIAL SQ SCH
[2022-10-10] MEDS ORDERED: DEXTROSE 50%-WATER 25 GM/50 ML SYRINGE IVP PRN
[2022-10-10] MEDS ORDERED: CEFEPIME HCL 0.5 GM in DEXTROSE 5%-WATER 50 ML IV SCH ×2
[2022-10-10] MEDS: MORPHINE SULFATE 2 MG/ML SYRINGE IVP PRN ×2 (00:15→22:44)
[2022-10-10] MEDS ORDERED: SODIUM CHLORIDE 0.9% 1,000 ML IV ONE (00:45)
[2022-10-10 04:01] VITALS: BP 138/68
[2022-10-10 05:50] LABS: BASOPHILS % (AUTO) 0.1 % (0.0-2.0); EOSINOPHILS % (AUTO) 0 % (1.0-6.0); HEMATOCRIT 26.3 % (41-53); HEMOGLOBIN 8.5 g/dL (13.5-17.5); LYMPHOCYTES # (AUTO) 0.7 K/uL (1.0-4.8); LYMPHOCYTES % (AUTO) 3.4 % (22.0-44.0); MEAN CORPUSCULAR HEMOGLOBIN 28.6 pg (26.0-34.0); MEAN CORPUSCULAR HGB CONC 32.5 G/dL (31.0-37.0); MEAN CORPUSCULAR VOLUME 88 fL (80-100); MONOCYTES # (AUTO) 1.2 K/uL (0.1-1.0); MONOCYTES % (AUTO) 5.4 % (2.0-9.0); NEUTROPHILS # (AUTO) 19.7 K/uL (1.8-7.7); PLATELET COUNT (AUTO) 285 K/uL (150-450); RED BLOOD CELL COUNT(AUTO) 2.98 MIL/uL (4.50-5.90); RED CELL DISTRIBUTION WIDTH 15.7 % (11.5-14.5)
[2022-10-10 05:58] LABS: NEUTROPHILS % (AUTO) 91.1 % (40.0-70.0)
[2022-10-10 06:00] LABS: CALCIUM, TOTAL 7.9 mg/dL (8.8-10.5); CREATININE 2.04 mg/dL (0.60-1.30); MAGNESIUM 2.1 mg/dL (1.80-2.40); POTASSIUM 4.2 mmol/L (3.5-5.1)
[2022-10-10] MEDS ORDERED: *CLINICAL-MEROPENEM DOSING CLINICAL ONE (06:30)
[2022-10-10 08:56] VITALS: BP 78/51
[2022-10-10] MEDS: SODIUM BICARBONATE 150 MEQ in DEXTROSE 5%-WATER 1,000 ML IV SCH ×2 (09:09→23:03)
[2022-10-10 11:30] VITALS: BP 76/50
[2022-10-10] MEDS ORDERED: VANCOMYCIN HCL 500 MG in DEXTROSE 5%-WATER 100 ML IV ONE (12:00)
[2022-10-10] MEDS: MEROPENEM 500 MG in SODIUM CHLORIDE 0.9% 50 ML IV SCH ×2 (12:00→23:03)
[2022-10-10] MEDS ORDERED: ALBUMIN HUMAN 5%-12.5GM/250ML 250 ML IV ONE (13:00)
[2022-10-10 13:36] VITALS: BP 82/52
[2022-10-10] MEDS ORDERED: SODIUM CHLORIDE 0.9% 500 ML IV ONE (16:48)
[2022-10-10 18:36] LABS: GLUCOMETER DEV NAME(LOC) 5N.1C; GLUCOSE,POINT OF CARE 81 MG/DL (70-110)
[2022-10-10 20:00] VITALS: BP 80/52
[2022-10-10] MEDS: ALBUMIN HUMAN 25%-25GM/100ML 100 ML IV SCH (20:41)
[2022-10-10 20:51] LABS: CALCIUM, TOTAL 8.2 mg/dL (8.8-10.5); CREATININE 1.87 mg/dL (0.60-1.30); MAGNESIUM 1.9 mg/dL (1.80-2.40); PHOSPHORUS 3.9 mg/dL (2.5-4.9); POTASSIUM 3.4 mmol/L (3.5-5.1)
[2022-10-10] MEDS: HEPARIN SODIUM,PORCINE 5,000 UNITS/ML VIAL SQ SCH (23:03)
[2022-10-11] VITALS: BP 89/58
[2022-10-11] MEDS ORDERED: LORazepam 2 MG/ML VIAL IVP ONE (03:00)
[2022-10-11] MEDS ORDERED: HALOPERIDOL LACTATE 5 MG/ML VIAL IVP ONE (03:00)
[2022-10-11 04:00] VITALS: BP 88/60
[2022-10-11] MEDS: ALBUMIN HUMAN 25%-25GM/100ML 100 ML IV SCH ×4 (04:59→22:41)
[2022-10-11 05:56] LABS: CREATININE 1.86 mg/dL (0.60-1.30)
[2022-10-11 05:59] LABS: MAGNESIUM 1.8 mg/dL (1.80-2.40); PHOSPHORUS 3.4 mg/dL (2.5-4.9)
[2022-10-11] MEDS: HEPARIN SODIUM,PORCINE 5,000 UNITS/ML VIAL SQ SCH ×3 (08:59→23:52)
[2022-10-11] MEDS ORDERED: VANCOMYCIN HCL 750 MG in DEXTROSE 5%-WATER 250 ML IV ONE (09:00)
[2022-10-11] MEDS: SODIUM BICARBONATE 150 MEQ in DEXTROSE 5%-WATER 1,000 ML IV SCH (09:04)
[2022-10-11 10:50] LABS: HEMATOCRIT 21.9 % (41-53); HEMOGLOBIN 7.2 g/dL (13.5-17.5); MEAN CORPUSCULAR HEMOGLOBIN 28.9 pg (26.0-34.0); MEAN CORPUSCULAR VOLUME 88 fL (80-100); PLATELET COUNT (AUTO) 244 K/uL (150-450); RED BLOOD CELL COUNT(AUTO) 2.49 MIL/uL (4.50-5.90); RED CELL DISTRIBUTION WIDTH 15.7 % (11.5-14.5)
[2022-10-11 10:51] LABS: BAND NEUTROPHILS % (MANUAL) 1 % (0-5); LYMPHOCYTES % (MANUAL) 13 % (22-44); MONOCYTES % (MANUAL) 3 % (2-9); SEGMENTED NEUTROPHILS % 83 % (40-70)
[2022-10-11] MEDS: MEROPENEM 500 MG in SODIUM CHLORIDE 0.9% 50 ML IV SCH ×2 (11:54→23:52)
[2022-10-11] MEDS ORDERED: POTASSIUM CHLORIDE 20 MEQ ER TABLET PO ONE (12:45)
[2022-10-11 14:46] VITALS: BP 88/60
[2022-10-11 20:57] VITALS: BP 83/58
[2022-10-11] MEDS ORDERED: SODIUM CHLORIDE 0.9% 500 ML IV ONE (21:27)
[2022-10-12] MEDS: ALBUMIN HUMAN 25%-25GM/100ML 100 ML IV SCH ×3 (03:26→15:28)
[2022-10-12 04:00] VITALS: BP 83/46
[2022-10-12 06:06] LABS: GLUCOMETER DEV NAME(LOC) 5N.1C; GLUCOSE,POINT OF CARE 109 MG/DL (70-110)
[2022-10-12 06:06] LABS: GLUCOMETER DEV NAME(LOC) 5N.1C; GLUCOSE,POINT OF CARE 95 MG/DL (70-110)
[2022-10-12 07:04] LABS: MAGNESIUM 1.8 mg/dL (1.80-2.40)
[2022-10-12 07:14] VITALS: BP 89/54
[2022-10-12 08:10] LABS: C-REACTIVE PROTEIN QUANT 15.4 mg/dL (0.00-0.30); CALCIUM, TOTAL 8.1 mg/dL (8.8-10.5); CREATININE 1.45 mg/dL (0.60-1.30)
[2022-10-12 08:12] LABS: POTASSIUM 2.6 mmol/L (3.5-5.1)
[2022-10-12] MEDS: SODIUM BICARBONATE 150 MEQ in DEXTROSE 5%-WATER 1,000 ML IV SCH ×2 (08:30→21:26)
[2022-10-12] MEDS: VANCOMYCIN HCL 750 MG in DEXTROSE 5%-WATER 250 ML IV SCH (08:45)
[2022-10-12] MEDS: HEPARIN SODIUM,PORCINE 5,000 UNITS/ML VIAL SQ SCH ×2 (08:46→15:44)
[2022-10-12] MEDS ORDERED: SODIUM PHOS,M-BASIC-D-BASIC 30 MMOL in DEXTROSE 5%-WATER 250 ML IV ONE (09:30)
[2022-10-12] MEDS ORDERED: MAGNESIUM SULFATE 2 GM/WATER 50 ML IV ONE (09:30)
[2022-10-12] MEDS: POTASSIUM CHL 10 MEQ/WATER 50 ML IV SCH ×4 (10:30→13:24)
[2022-10-12 11:27] VITALS: BP 78/46
[2022-10-12] MEDS: SODIUM CHLORIDE 0.9% 1,000 ML IV SCH (11:59)
[2022-10-12] MEDS: INSULIN LISPRO 100 UNITS/ML SQ PRN (12:04)
[2022-10-12] MEDS: MEROPENEM 500 MG in SODIUM CHLORIDE 0.9% 50 ML IV SCH (13:49)
[2022-10-12] MEDS ORDERED: POTASSIUM CHLORIDE 20 MEQ ER TABLET PO ONE ×2 (14:00→18:45)
[2022-10-12 15:16] VITALS: BP 97/61
[2022-10-12 16:23] VITALS: BP 97/67
[2022-10-12 17:01] LABS: GLUCOMETER DEV NAME(LOC) 5N.1C; GLUCOSE,POINT OF CARE 147 MG/DL (70-110)
[2022-10-12 17:31] LABS: GLUCOMETER DEV NAME(LOC) 5N.1C; GLUCOSE,POINT OF CARE 116 MG/DL (70-110)
[2022-10-12 20:10] VITALS: BP 96/63
[2022-10-12 20:16] LABS: GLUCOMETER DEV NAME(LOC) 5N.1C; GLUCOSE,POINT OF CARE 120 MG/DL (70-110)
[2022-10-12] MEDS: ETHYL ALCOHOL 62% ANTISEPTIC NASAL SANITIZER 0.6 ML AMPUL NASAL SCH (21:36)
[2022-10-12] MEDS: MORPHINE SULFATE 2 MG/ML SYRINGE IVP PRN (21:36)
[2022-10-13] VITALS (16 sets, daily range): BP systolic 92–109; BP diastolic 46–68
[2022-10-13] MEDS: ALBUMIN HUMAN 25%-25GM/100ML 100 ML IV SCH ×2 (00:35→05:57)
[2022-10-13] MEDS: MEROPENEM 500 MG in SODIUM CHLORIDE 0.9% 50 ML IV SCH ×2 (00:35→12:05)
[2022-10-13] MEDS: SODIUM CHLORIDE 0.9% 1,000 ML IV SCH ×3 (00:57→16:38)
[2022-10-13] MEDS: ACETAMINOPHEN 325 MG TABLET PO PRN (01:33)
[2022-10-13] MEDS: MORPHINE SULFATE 2 MG/ML SYRINGE IVP PRN ×3 (05:58→20:32)
[2022-10-13 06:44] LABS: ANION GAP 11 mmol/L (8-16); C-REACTIVE PROTEIN QUANT 10.32 mg/dL (0.00-0.30); CALCIUM, TOTAL 7.9 mg/dL (8.8-10.5); CARBON DIOXIDE 22 mmol/L (22-29); CHLORIDE 110 mmol/L (98-107); CREATININE 1.17 mg/dL (0.60-1.30); GLUCOSE,RANDOM 92 mg/dL (70-110); POTASSIUM 3.9 mmol/L (3.5-5.1); SODIUM SERUM 143 mmol/L (136-145); UREA NITROGEN, BLOOD 35 mg/dL (7-18); VANCOMYCIN,RANDOM 15.2 mcg/mL (25.0-50.0)
[2022-10-13 06:51] LABS: GLOMERULAR FILTR. RATE CALC > 60 mL/min (>60)
[2022-10-13 06:52] LABS: BASOPHILS % (AUTO) 0.3 % (0.0-2.0); EOSINOPHILS % (AUTO) 0.5 % (1.0-6.0); LYMPHOCYTES # (AUTO) 1.2 K/uL (1.0-4.8); LYMPHOCYTES % (AUTO) 13.9 % (22.0-44.0); MEAN CORPUSCULAR HEMOGLOBIN 29.3 pg (26.0-34.0); MEAN CORPUSCULAR HGB CONC 33.6 G/dL (31.0-37.0); MEAN CORPUSCULAR VOLUME 87 fL (80-100); MONOCYTES # (AUTO) 0.6 K/uL (0.1-1.0); MONOCYTES % (AUTO) 6.6 % (2.0-9.0); NEUTROPHILS % (AUTO) 78.7 % (40.0-70.0); PLATELET COUNT (AUTO) 225 K/uL (150-450); RED BLOOD CELL COUNT(AUTO) 2.31 MIL/uL (4.50-5.90); RED CELL DISTRIBUTION WIDTH 15.8 % (11.5-14.5)
[2022-10-13 06:59] LABS: HEMOGLOBIN 6.8 g/dL (13.5-17.5)
[2022-10-13 07:00] LABS: HEMATOCRIT 20.1 % (41-53)
[2022-10-13] MEDS: HEPARIN SODIUM,PORCINE 5,000 UNITS/ML VIAL SQ SCH ×3 (08:00→16:00)
[2022-10-13 08:16] LABS: GLUCOMETER DEV NAME(LOC) 5S.1B; GLUCOSE,POINT OF CARE 123 MG/DL (70-110)
[2022-10-13] MEDS: MULTIVITAMINS, THERAPEUTIC TABLET PO SCH (08:24)
[2022-10-13] MEDS: ASCORBIC ACID 500 MG TABLET PO SCH (08:24)
[2022-10-13] MEDS: VANCOMYCIN HCL 750 MG in DEXTROSE 5%-WATER 250 ML IV SCH (08:32)
[2022-10-13] MEDS: ETHYL ALCOHOL 62% ANTISEPTIC NASAL SANITIZER 0.6 ML AMPUL NASAL SCH ×2 (08:34→20:40)
[2022-10-13] MEDS ORDERED: SODIUM CHLORIDE 0.9% 250 ML IV ONE ×2 (11:20→11:54)
[2022-10-13] MEDS: SODIUM BICARBONATE 150 MEQ in DEXTROSE 5%-WATER 1,000 ML IV SCH (13:52)
[2022-10-13 19:48] LABS: HEMATOCRIT 27.6 % (41-53); HEMOGLOBIN 9.3 g/dL (13.5-17.5)
[2022-10-13 21:47] LABS: GLUCOMETER DEV NAME(LOC) 5N.1C; GLUCOSE,POINT OF CARE 89 MG/DL (70-110)
[2022-10-14] MEDS: MEROPENEM 500 MG in SODIUM CHLORIDE 0.9% 50 ML IV SCH (00:16)
[2022-10-14 01:41] LABS: HEMATOCRIT 27.2 % (41-53); HEMOGLOBIN 9.2 g/dL (13.5-17.5)
[2022-10-14 03:16] LABS: GLUCOMETER DEV NAME(LOC) 5S.2B; GLUCOSE,POINT OF CARE 98 MG/DL (70-110)
[2022-10-14 07:45] VITALS: BP 113/62
[2022-10-14] MEDS: VANCOMYCIN HCL 750 MG in DEXTROSE 5%-WATER 250 ML IV SCH (08:46)
[2022-10-14] MEDS: ASCORBIC ACID 500 MG TABLET PO SCH (08:47)
[2022-10-14] MEDS: MULTIVITAMINS, THERAPEUTIC TABLET PO SCH (08:47)
[2022-10-14] MEDS: HEPARIN SODIUM,PORCINE 5,000 UNITS/ML VIAL SQ SCH ×3 (08:47→15:26)
[2022-10-14] MEDS: ETHYL ALCOHOL 62% ANTISEPTIC NASAL SANITIZER 0.6 ML AMPUL NASAL SCH ×2 (08:48→21:00)
[2022-10-14] MEDS: SODIUM CHLORIDE 0.9% 1,000 ML IV SCH (08:51)
[2022-10-14] MEDS: MEROPENEM 1 GM in SODIUM CHLORIDE 0.9% 100 ML IV SCH ×2 (11:50→23:14)
[2022-10-14] MEDS: INSULIN LISPRO 100 UNITS/ML SQ PRN ×2 (12:00→17:50)
[2022-10-14 12:11] VITALS: BP 109/59
[2022-10-14] MEDS: SODIUM BICARBONATE 100 MEQ in DEXTROSE 5%-WATER 1,000 ML IV SCH (15:26)
[2022-10-14 20:04] LABS: GLUCOMETER DEV NAME(LOC) 5N.1C; GLUCOSE,POINT OF CARE 121 MG/DL (70-110)
[2022-10-14 20:04] LABS: GLUCOMETER DEV NAME(LOC) 5S.2B; GLUCOSE,POINT OF CARE 128 MG/DL (70-110)
[2022-10-14 20:44] VITALS: BP 117/69
[2022-10-14] MEDS ORDERED: SODIUM CHLORIDE 0.9% 500 ML IV ONE (23:01)
[2022-10-14 23:37] LABS: GLUCOMETER DEV NAME(LOC) 5N.1C; GLUCOSE,POINT OF CARE 138 MG/DL (70-110)
[2022-10-15 01:02] VITALS: BP 97/74
[2022-10-15] MEDS: SODIUM BICARBONATE 100 MEQ in DEXTROSE 5%-WATER 1,000 ML IV SCH (06:22)
[2022-10-15] MEDS: MORPHINE SULFATE 2 MG/ML SYRINGE IVP PRN ×2 (08:02→22:40)
[2022-10-15] MEDS: MULTIVITAMINS, THERAPEUTIC TABLET PO SCH (08:09)
[2022-10-15] MEDS: HEPARIN SODIUM,PORCINE 5,000 UNITS/ML VIAL SQ SCH ×3 (08:09→15:40)
[2022-10-15] MEDS: ETHYL ALCOHOL 62% ANTISEPTIC NASAL SANITIZER 0.6 ML AMPUL NASAL SCH ×2 (08:09→21:27)
[2022-10-15] MEDS: VANCOMYCIN HCL 750 MG in DEXTROSE 5%-WATER 250 ML IV SCH (08:09)
[2022-10-15] MEDS: ASCORBIC ACID 500 MG TABLET PO SCH (08:09)
[2022-10-15 08:15] VITALS: BP 96/73
[2022-10-15] MEDS: ACETAMINOPHEN 325 MG TABLET PO PRN (08:23)
[2022-10-15 11:47] LABS: GLUCOMETER DEV NAME(LOC) 5S.1B; GLUCOSE,POINT OF CARE 96 MG/DL (70-110)
[2022-10-15] MEDS: MEROPENEM 1 GM in SODIUM CHLORIDE 0.9% 100 ML IV SCH ×2 (11:50→23:55)
[2022-10-15 12:10] VITALS: BP 83/53
[2022-10-15 12:53] LABS: BASOPHILS % (AUTO) 0.4 % (0.0-2.0); HEMATOCRIT 27.6 % (41-53); HEMOGLOBIN 9.3 g/dL (13.5-17.5); LYMPHOCYTES # (AUTO) 1.4 K/uL (1.0-4.8); LYMPHOCYTES % (AUTO) 16.3 % (22.0-44.0); MEAN CORPUSCULAR HEMOGLOBIN 29.4 pg (26.0-34.0); MEAN CORPUSCULAR HGB CONC 33.5 G/dL (31.0-37.0); MEAN CORPUSCULAR VOLUME 88 fL (80-100); MONOCYTES # (AUTO) 0.5 K/uL (0.1-1.0); MONOCYTES % (AUTO) 6.2 % (2.0-9.0); NEUTROPHILS # (AUTO) 6.4 K/uL (1.8-7.7); NEUTROPHILS % (AUTO) 75.1 % (40.0-70.0); PLATELET COUNT (AUTO) 208 K/uL (150-450); RED BLOOD CELL COUNT(AUTO) 3.15 MIL/uL (4.50-5.90); RED CELL DISTRIBUTION WIDTH 15.7 % (11.5-14.5)
[2022-10-15 13:04] LABS: GLUCOMETER DEV NAME(LOC) 5S.2B; GLUCOSE,POINT OF CARE 118 MG/DL (70-110)
[2022-10-15 13:07] LABS: ANION GAP 5 mmol/L (8-16); C-REACTIVE PROTEIN QUANT 4.24 mg/dL (0.00-0.30); CALCIUM, TOTAL 7.7 mg/dL (8.8-10.5); CARBON DIOXIDE 24 mmol/L (22-29); CHLORIDE 107 mmol/L (98-107); CREATININE 0.85 mg/dL (0.60-1.30); GLUCOSE,RANDOM 133 mg/dL (70-110); POTASSIUM 3.7 mmol/L (3.5-5.1); SODIUM SERUM 136 mmol/L (136-145); UREA NITROGEN, BLOOD 34 mg/dL (7-18)
[2022-10-15 13:09] LABS: GLOMERULAR FILTR. RATE CALC > 60 mL/min (>60)
[2022-10-15 13:24] LABS: MAGNESIUM 1.8 mg/dL (1.80-2.40); PHOSPHORUS 1.5 mg/dL (2.5-4.9)
[2022-10-15 15:25] VITALS: BP 96/64
[2022-10-15 19:45] VITALS: BP 98/59
[2022-10-15] MEDS: VANCOMYCIN HCL 500 MG in DEXTROSE 5%-WATER 100 ML IV SCH (22:44)
[2022-10-15 23:42] VITALS: BP 104/66
[2022-10-16] MEDS: MORPHINE SULFATE 2 MG/ML SYRINGE IVP PRN ×2 (05:40→12:52)
[2022-10-16] MEDS: MEROPENEM 1 GM in SODIUM CHLORIDE 0.9% 100 ML IV SCH (07:27)
[2022-10-16] MEDS: HEPARIN SODIUM,PORCINE 5,000 UNITS/ML VIAL SQ SCH ×2 (08:18)
[2022-10-16] MEDS: ASCORBIC ACID 500 MG TABLET PO SCH (08:18)
[2022-10-16] MEDS: VANCOMYCIN HCL 500 MG in DEXTROSE 5%-WATER 100 ML IV SCH (08:18)
[2022-10-16] MEDS: MULTIVITAMINS, THERAPEUTIC TABLET PO SCH (08:18)
[2022-10-16] MEDS: ETHYL ALCOHOL 62% ANTISEPTIC NASAL SANITIZER 0.6 ML AMPUL NASAL SCH (09:00)
[2022-10-16] MEDS ORDERED: LEVOFLOXACIN 750 MG TABLET PO SCH (12:00)
[2022-10-16] MEDS ORDERED: LEVO750T68 PO (12:04)
[2022-10-16] MEDS: SODIUM BICARBONATE 100 MEQ in DEXTROSE 5%-WATER 1,000 ML IV SCH (12:54)
[2022-10-16 16:00] VITALS: BP 121/73
[2022-10-16] MEDS ORDERED: ERTAPENEM SODIUM 1 GM in SODIUM CHLORIDE 0.9% 50 ML IV SCH (16:00)
[2022-10-16 17:36] LABS: GLUCOMETER DEV NAME(LOC) 5N.1C; GLUCOSE,POINT OF CARE 96 MG/DL (70-110)
== END 2022-10-16 16:30 | disposition hospice, home (50) | DRG 871 ==
LOC: EMS 20:48 → 5N 10-10 02:44 → 5S 10-11 20:45
PROVIDERS: ADMIT Internal Medicine; ATTEND Hospitalist
PROC: 30233N1 Transfusion of Nonautologous Red Blood Cells into Peripheral Vein, Percutaneous Approach (ICD-10-PCS; principal; 2022-10-13)
DX: A41.9 Sepsis, unspecified organism (principal); E43 Unspecified severe protein-calorie malnutrition; L89.154 Pressure ulcer of sacral region, stage 4; N17.0 Acute kidney failure with tubular necrosis; K68.12 Psoas muscle abscess; J18.9 Pneumonia, unspecified organism; R65.21 Severe sepsis with septic shock; E87.1 Hypo-osmolality and hyponatremia; E87.20 Acidosis, unspecified; N39.0 Urinary tract infection, site not specified; Z68.1 Body mass index [BMI] 19.9 or less, adult; E86.0 Dehydration; I12.9 Hypertensive chronic kidney disease with stage 1 through stage 4 chronic kidney disease, or unspecified chronic kidney disease; N18.9 Chronic kidney disease, unspecified; K21.9 Gastro-esophageal reflux disease without esophagitis; E87.5 Hyperkalemia; Z66 Do not resuscitate; L89.159 Pressure ulcer of sacral region, unspecified stage; M48.02 Spinal stenosis, cervical region; D64.9 Anemia, unspecified; E83.42 Hypomagnesemia; B96.1 Klebsiella pneumoniae [K. pneumoniae] as the cause of diseases classified elsewhere; Z79.899 Other long term (current) drug therapy; Z88.8 Allergy status to other drugs, medicaments and biological substances; Z93.3 Colostomy status; Z91.199 Patient's noncompliance with other medical treatment and regimen due to unspecified reason
CPT/HCPCS: 71045; 76770; 80048; 80053; 80202; 81001; 82140; 82271; 82570; 82728; 82962; 83540; 83550; 83605; 83690; 83735; 84100; 84300; 84484; 85007; 85014; 85018; 85025; 85027; 85610; 85730; 86140; 86850; 86900; 86901; 86923; 87040; 87070; 87081; 87086; 87186; 87205; 93005; 99285; J0692; J1335; J1644; J1815; J1956; J2185; J2270; J3370; J3475; J3480; J3490; J7030; J7040; J7050; J7060; P9016; P9041; P9046; Q9967; 36415-L1; 36415-TC; U0003; X7700